=== PATIENT | female | born 1975 | race African-American/Black ===

== ENCOUNTER → 2016-10-15 | Outpatient (CLI) | payer OTHER | LOC: OD 12:15 | PROVIDERS: ATTEND Psychiatry & Neurology Psychiatry | DX: F33.0 Major depressive disorder, recurrent, mild (principal); Z53.9 Procedure and treatment not carried out, unspecified reason ==

== ENCOUNTER → 2016-10-23 | Outpatient (CLI) | payer OTHER ==
[2016-10-23 14:28] LABS: ABSOLUTE EOSINOPHILS # (AUTO) 0.1 10^3/uL (0.0-0.6); ABSOLUTE LYMPHOCYTES (AUTO) 1.4 10^3/uL (0.5-4.7); ABSOLUTE MONOCYTES (AUTO) 0.3 10^3/uL (0.1-1.4); ABSOLUTE NEUT (AUTO) 3.7 10^3/uL (1.7-8.2); BASOPHILS % (AUTO) 0.4 % (0-2); EOSINOPHILS % (AUTO) 1.9 % (0-6); HEMATOCRIT 37.1 % (36.0-47.0); HEMOGLOBIN 12.4 g/dL (12.0-15.5); HGB HCT DIFFERENCE 0.1; LYMPHOCYTES % (AUTO) 26.1 % (13-45); MEAN CORPUSCULAR HEMOGLOBIN 27.4 pg (27.0-33.4); MEAN CORPUSCULAR HGB CONC 33.6 g/dL (32.0-36.0); MEAN CORPUSCULAR VOLUME 82 fl (80-97); MONOCYTES % (AUTO) 4.9 % (3-13); RED BLOOD COUNT 4.55 10^6/uL (3.72-5.28); RED CELL DISTRIBUTION WIDTH 14.5 % (11.5-14.0); SEGMENTED NEUTROPHILS % (AUTO) 66.7 % (42-78); WHITE BLOOD COUNT 5.5 10^3/uL (4.0-10.5)
[2016-10-23 14:55] LABS: ALANINE AMINOTRANSFERASE 26 U/L (9-52); ALBUMIN 4.4 g/dL (3.5-5.0); ALKALINE PHOSPHATASE 112 U/L (38-126); ANION GAP 13 (5-19); ASPARTATE AMINO TRANSFERASE 20 U/L (14-36); BILIRUBIN,DIRECT 0.3 mg/dL (0.0-0.4); BILIRUBIN,TOTAL 0.6 mg/dL (0.2-1.3); BLOOD UREA NITROGEN 15 mg/dL (7-20); CALCIUM 9.6 mg/dL (8.4-10.2); CARBON DIOXIDE 24 mmol/L (22-30); CHLORIDE 106 mmol/L (98-107); CHOLESTEROL 228.38 mg/dL (0-200); CREATININE RESULT 0.68 mg/dL (0.52-1.25); Direct HDL 70 mg/dL (>40); GLUCOSE 81 mg/dL (75-110); POTASSIUM 4.2 mmol/L (3.6-5.0); SODIUM 142.8 mmol/L (137-145); TOTAL PROTEIN 7.8 g/dL (6.3-8.2); TRIGLYCERIDES 62 mg/dL (<150)
[2016-10-23 15:06] LABS: DIRECT LDL 106 mg/dL (<100)
== END ==
LOC: OD 13:34
PROVIDERS: ATTEND Psychiatry & Neurology Psychiatry
DX: F33.0 Major depressive disorder, recurrent, mild (principal); F41.1 Generalized anxiety disorder; F90.0 Attention-deficit hyperactivity disorder, predominantly inattentive type
CPT/HCPCS: 36415; 80053; 80061; 84443; 85025

== ENCOUNTER → 2017-03-26 | Outpatient (CLI) | payer OTHER ==
--- NOTE | 2017-03-26 12:54 | EKG REPORT ---
SEVERITY:- NORMAL ECG - SINUS RHYTHM : Confirmed by: Linden Palacios MD 26-Mar-2017 12:53:46
[2017-03-26 13:05] LABS: ABSOLUTE EOSINOPHILS # (AUTO) 0.2 10^3/uL (0.0-0.6); ABSOLUTE LYMPHOCYTES (AUTO) 1.7 10^3/uL (0.5-4.7); ABSOLUTE MONOCYTES (AUTO) 0.4 10^3/uL (0.1-1.4); BASOPHILS % (AUTO) 0.3 % (0-2); EOSINOPHILS % (AUTO) 2.3 % (0-6); HEMATOCRIT 36.2 % (36.0-47.0); HEMOGLOBIN 11.8 g/dL (12.0-15.5); HGB HCT DIFFERENCE -0.8; LYMPHOCYTES % (AUTO) 23.4 % (13-45); MEAN CORPUSCULAR HEMOGLOBIN 26.6 pg (27.0-33.4); MEAN CORPUSCULAR HGB CONC 32.7 g/dL (32.0-36.0); MEAN CORPUSCULAR VOLUME 82 fl (80-97); RED BLOOD COUNT 4.44 10^6/uL (3.72-5.28); RED CELL DISTRIBUTION WIDTH 14.6 % (11.5-14.0); WHITE BLOOD COUNT 7.4 10^3/uL (4.0-10.5)
--- NOTE | 2017-03-26 13:15 | RADIOLOGY REPORT (SQ) ---
EXAM DESCRIPTION: CHEST PA/LATERAL COMPLETED DATE/TIME: 03/26/2017 12:49 pm REASON FOR STUDY: PRE OP COMPARISON: None. EXAM PARAMETERS: NUMBER OF VIEWS: two views TECHNIQUE: Digital Frontal and Lateral radiographic views of the chest acquired. RADIATION DOSE: NA LIMITATIONS: none FINDINGS: LUNGS AND PLEURA: No opacities, masses or pneumothorax. No pleural effusion. MEDIASTINUM AND HILAR STRUCTURES: No masses or contour abnormalities. HEART AND VASCULAR STRUCTURES: Heart normal size. No evidence for failure. BONES: No acute findings. HARDWARE: None in the chest. OTHER: No other significant finding. IMPRESSION: NO SIGNIFICANT RADIOGRAPHIC FINDING IN THE CHEST. TECHNICAL DOCUMENTATION: JOB ID: [id number] [employer]- All Rights Reserved
[2017-03-26 13:31] LABS: ALANINE AMINOTRANSFERASE 23 U/L (9-52); ALBUMIN 4.3 g/dL (3.5-5.0); ALKALINE PHOSPHATASE 143 U/L (38-126); ANION GAP 12 (5-19); ASPARTATE AMINO TRANSFERASE 19 U/L (14-36); BILIRUBIN,DIRECT 0.4 mg/dL (0.0-0.4); BILIRUBIN,TOTAL 0.6 mg/dL (0.2-1.3); BLOOD UREA NITROGEN 11 mg/dL (7-20); CALCIUM 9.6 mg/dL (8.4-10.2); CARBON DIOXIDE 25 mmol/L (22-30); CHLORIDE 104 mmol/L (98-107); GLUCOSE 78 mg/dL (75-110); POTASSIUM 4.6 mmol/L (3.6-5.0); TOTAL PROTEIN 7.8 g/dL (6.3-8.2)
== END ==
LOC: OD 11:58
PROVIDERS: ATTEND Surgery
DX: Z01.810 Encounter for preprocedural cardiovascular examination (principal); Z01.811 Encounter for preprocedural respiratory examination; Z01.812 Encounter for preprocedural laboratory examination; Z01.818 Encounter for other preprocedural examination; E66.01 Morbid (severe) obesity due to excess calories; K21.9 Gastro-esophageal reflux disease without esophagitis
CPT/HCPCS: 36415; 71020; 80053; 84443; 85025; 93005; 93010

== ENCOUNTER → 2017-04-02 | Outpatient (CLI) | payer OTHER | LOC: LAB 19:54 | PROVIDERS: ATTEND Nurse Practitioner Acute Care | DX: R30.0 Dysuria (principal) | CPT/HCPCS: 87086 ==

== ENCOUNTER → 2018-07-02 | Outpatient (CLI) | payer MEDICARE, OTHER ==
--- NOTE | 2018-07-02 12:10 | RADIOLOGY REPORT (SQ) ---
EXAM DESCRIPTION: FOOT RIGHT COMPLETE COMPLETED DATE/TIME: 07/02/2018 11:55 am REASON FOR STUDY: UNSPECIFIED INJURY OF RIGHT FOOT, INITIAL ENCOUNTER S99.921A UNSPECIFIED INJURY O F RIGHT FOOT, INITIAL ENCOUNTER tripped over a suitcase, twisted foot COMPARISON: None. NUMBER OF VIEWS: Three views. TECHNIQUE: AP, lateral and oblique radiographic images acquired of the right foot. LIMITATIONS: None. FINDINGS: MINERALIZATION: Normal. BONES: No acute fracture or dislocation. No worrisome bone lesions. JOINTS: No effusions. SOFT TISSUES: Diffuse forefoot soft tissue swelling. No foreign body. OTHER: No other significant finding. IMPRESSION: Diffuse forefoot soft tissue swelling. No acute fracture. TECHNICAL DOCUMENTATION: JOB ID: [id number] [employer]- All Rights Reserved Reading location - IP/workstation name: [email or web address]
== END ==
LOC: OD 11:36
PROVIDERS: ATTEND Nurse Practitioner Acute Care
DX: S99.921A Unspecified injury of right foot, initial encounter (principal); X58.XXXA Exposure to other specified factors, initial encounter

== ENCOUNTER 2018-09-24 12:06 | Inpatient (IN) | payer OTHER, MEDICARE ==
--- NOTE | 2018-09-24 12:47 | ER Document Report ---
ED Medical Screen (RME) - General Chief Complaint: Blurred Vision Stated Complaint: BLURRED VISION Time Seen by Provider: 09/24/18 12:33 Primary Care Provider: LARRY LARSON NP [Primary Care Provider] - Follow up as needed Notes: 43-year-old female, history of polypharmacy, history of fibromyalgia and chronic pain to the emergency department for evaluation of altered mental status, blurred vision and not feeling well for the last several days. Patient states that she has a history of hypoglycemia but recently started a ketogenic diet. I have greeted and performed a rapid initial assessment of this patient. A comprehensive ED assessment and evaluation of the patient, analysis of test results and completion of the medical decision making process will be conducted by additional ED providers. TRAVEL OUTSIDE OF THE [place] IN LAST 30 DAYS: No - Related Data Allergies/Adverse Reactions: No Known Allergies Allergy (Unverified 09/24/18 12:07) Physical Exam - Vital signs Vitals: Temp Pulse Resp BP Pulse Ox 97.5 F 88 20 139/73 H 98 09/24/18 12:21 09/24/18 12:21 09/24/18 12:21 09/24/18 12:21 09/24/18 12:21 Course - Re-evaluation Re-evalutation: 09/24/18 12:49 Physical exam: Vision is quite somnolent, falling asleep during my exam, appears dry on physical exam, slightly elevated heart rate, - Vital Signs Vital signs: Temp Pulse Resp BP Pulse Ox 97.5 F 88 20 139/73 H 98 09/24/18 12:21 09/24/18 12:21 09/24/18 12:21 09/24/18 12:21 09/24/18 12:21 Doctor's Discharge - Discharge Referrals: LARRY LARSON NP [Primary Care Provider] - Follow up as needed
[2018-09-24] MEDS ORDERED: NORMAL SALINE 1000 ML 1,000 ML IV ONE (12:49)
[2018-09-24] MEDS ORDERED: MECLIZINE HCL 25 MG TABLET PO ONE (14:43)
--- NOTE | 2018-09-24 14:44 | ER Document Report ---
ED General - General Chief Complaint: Blurred Vision Stated Complaint: BLURRED VISION Time Seen by Provider: 09/24/18 12:33 Mode of Arrival: Ambulatory Information source: Patient, Relative Notes: 43-year-old female, history of polypharmacy, history of fibromyalgia and chronic pain, neuropathy presents with complaint of dizziness, blurred vision that started 3 days prior to arrival. Patient describes her dizziness as feeling lightheaded like she has to sit down. She states that it feels like the room is moving. She has had ringing in her right ear. She denies any recent illness. Patient's significant other stated that the patient has had some slurred speech, has seemed more sleepy than usual. Patient states that she has a history of hypoglycemia but recently started a ketogenic diet. TRAVEL OUTSIDE OF THE [place] IN LAST 30 DAYS: No - HPI Onset: Other Onset/Duration: Gradual, Persistent Quality of pain: Achy Severity: Mild - Patient has chronic aching pain in her neck, back, lower extremities. Associated symptoms: Body/muscle aches, Headache, Nausea. denies: Chest pain, Productive cough, Fever, Vomiting, Shortness of breath, Sweating Exacerbated by: Movement, Walking Relieved by: Sitting Similar symptoms previously: Yes Recently seen / treated by doctor: Yes - Related Data Allergies/Adverse Reactions: No Known Allergies Allergy (Unverified 09/24/18 12:07) Past Medical History - General Information source: Patient, Relative, [facility] Records - Social History Smoking Status: Never Smoker Frequency of alcohol use: None Drug Abuse: Prescription drugs Lives with: Spouse/Significant other Family History: Reviewed & Not Pertinent Patient has suicidal ideation: No Patient has homicidal ideation: No - Medical History Medical History: Other - Fibromyalgia, lupus, chronic pain Renal/ Medical History: Denies: Hx Peritoneal Dialysis Musculoskeletal Medical History: Reports Hx Arthritis Past Surgical History: Reports: Hx Orthopedic Surgery - left knee, Hx Tonsillectomy Review of Systems - Review of Systems Notes: REVIEW OF SYSTEMS: CONSTITUTIONAL : Denies fever, chills, or sweats. Denies recent illness. Denies weight loss, recent hospitalizations. EENT: Denies eye pain. Denies sore throat, oral lesions, difficulty swallowing. CARDIOVASCULAR: Denies chest pain. Denies palpitations. Denies lower extremity edema. RESPIRATORY: Denies cough. Denies shortness of breath, wheezing. GASTROINTESTINAL: Denies abdominal pain or distention. Denies nausea, vomiting, or diarrhea. Denies blood in vomitus, stools, or per rectum. Denies black, tarry stools. Denies constipation. GENITOURINARY: Denies difficulty urinating, painful urination, frequency, blood in urine, or vaginal discharge. MUSCULOSKELETAL: + Diffuse myalgia SKIN: Denies rash, lesions or sores. HEMATOLOGIC : Denies easy bruising or bleeding. LYMPHATIC: Denies swollen glands. NEUROLOGICAL: Denies altered mental status. Denies loss of consciousness. Denies weakness or paralysis. Denies problems difficulty with ambulation, slurred speech. Denies sensory loss, numbness, or tingling. Denies seizures. PSYCHIATRIC: Denies anxiety or stress. Denies depression, suicidal ideation, or homicidal ideation. Denies visual or auditory hallucinations. Physical Exam - Vital signs Vitals: Temp Pulse Resp BP Pulse Ox 97.5 F 88 20 139/73 H 98 09/24/18 12:21 09/24/18 12:21 09/24/18 12:21 09/24/18 12:21 09/24/18 12:21 - Notes Notes: PHYSICAL EXAMINATION: GENERAL: Well-appearing, well-nourished and in no acute distress. HEAD: Atraumatic, normocephalic. EYES: Pupils equal round and reactive to light, extraocular movements intact, conjunctiva are normal. ENT: Nares patent, oropharynx clear without exudates. Moist mucous membranes. NECK: Normal range of motion, supple without lymphadenopathy LUNGS: Breath sounds clear to auscultation bilaterally and equal. No wheezes rales or rhonchi. HEART: Regular rate and rhythm without murmurs ABDOMEN: Soft, nontender, nondistended abdomen. No guarding, no rebound. No masses appreciated. Female : deferred Musculoskeletal: Normal range of motion, no pitting or edema. No cyanosis. NEUROLOGICAL: Mental status; alert and oriented x3. Cranial nerves II through XII intact. Sensation intact to sharp/dull differentiation in all extremities. Motor; normal tone. No abnormal movements appreciated. No pronator drift. Strength tested and 5/5 in bilateral wrist flexion/extension, elbow flexion/extension, shoulder abduction, straight leg raise, knee flexion/extension, ankle dorsiflexion/plantar flexion. Coordination; no ataxia. Finger to nose and heel to zambrano testing intact bilaterally. Bilateral lower extremity drift. NIH-3 Reflexes; brachial radialis, biceps, and patellar reflexes within normal limits and symmetric bilaterally. Babinski with downgoing toes bilaterally. PSYCH: Normal mood, normal affect. SKIN: Warm, Dry, normal turgor, no rashes or lesions noted. Course - Re-evaluation Re-evalutation: Laboratory 09/24/18 09/24/18 09/24/18 12:50 13:26 13:47 WBC RBC Hgb Hct MCV MCH MCHC RDW Plt Count Seg Neutrophils % Lymphocytes % Monocytes % Eosinophils % Basophils % Absolute Neutrophils Absolute Lymphocytes Absolute Monocytes Absolute Eosinophils Absolute Basophils PT INR APTT Sodium Potassium Chloride Carbon Dioxide Anion Gap BUN Creatinine Est GFR ( Amer) Est GFR (Non-Af Amer) Glucose POC Glucose 80 77 Calcium Magnesium Total Bilirubin Direct Bilirubin Neonat Total Bilirubin Neonat Direct Bilirubin Neonat Indirect Bili AST ALT Alkaline Phosphatase Troponin I Total Protein Albumin TSH Free T4 Free T3 pg/mL Urine Color YELLOW Urine Appearance SLIGHTLY-CLOUDY Urine pH 5.0 Ur Specific [place] 1.013 Urine Protein NEGATIVE Urine Glucose (UA) NEGATIVE Urine Ketones NEGATIVE Urine Blood NEGATIVE Urine Nitrite NEGATIVE Urine Bilirubin NEGATIVE Urine Urobilinogen NEGATIVE Ur Leukocyte Esterase SMALL H Urine WBC (Auto) 21 Urine RBC (Auto) 5 Urine Bacteria (Auto) TRACE Urine Mucus (Auto) RARE Urine Ascorbic Acid 20 H Urine Opiates Screen Urine Methadone Screen Ur Barbiturates Screen Ur Phencyclidine Scrn Ur Amphetamines Screen U Benzodiazepines Scrn Urine Cocaine Screen U Marijuana (THC) Screen Serum Alcohol 09/24/18 09/24/18 09/24/18 13:47 14:46 14:46 WBC 6.5 RBC 4.34 Hgb 11.6 L Hct 35.2 L MCV 81 MCH 26.8 L MCHC 33.1 RDW 14.5 H Plt Count 303 Seg Neutrophils % 67.0 Lymphocytes % 23.8 Monocytes % 6.0 Eosinophils % 2.8 Basophils % 0.4 Absolute Neutrophils 4.3 Absolute Lymphocytes 1.5 Absolute Monocytes 0.4 Absolute Eosinophils 0.2 Absolute Basophils 0.0 PT INR APTT Sodium 139.9 Potassium 5.1 H Chloride 111 H Carbon Dioxide 14 L Anion Gap 15 BUN 69 H Creatinine 4.33 H Est GFR ( Amer) 14 L Est GFR (Non-Af Amer) 11 L Glucose 89 POC Glucose Calcium 9.1 Magnesium 2.3 Total Bilirubin 0.3 Direct Bilirubin 0.2 Neonat Total Bilirubin Not Reportable Neonat Direct Bilirubin Not Reportable Neonat Indirect Bili Not Reportable AST 21 ALT 29 Alkaline Phosphatase 132 H Troponin I Total Protein 8.1 Albumin 4.4 TSH Free T4 Free T3 pg/mL Urine Color Urine Appearance Urine pH Ur Specific [place] Urine Protein Urine Glucose (UA) Urine Ketones Urine Blood Urine Nitrite Urine Bilirubin Urine Urobilinogen Ur Leukocyte Esterase Urine WBC (Auto) Urine RBC (Auto) Urine Bacteria (Auto) Urine Mucus (Auto) Urine Ascorbic Acid Urine Opiates Screen NEGATIVE Urine Methadone Screen NEGATIVE Ur Barbiturates Screen NEGATIVE Ur Phencyclidine Scrn NEGATIVE Ur Amphetamines Screen NEGATIVE U Benzodiazepines Scrn NEGATIVE Urine Cocaine Screen NEGATIVE U Marijuana (THC) Screen NEGATIVE Serum Alcohol < 10 09/24/18 09/24/18 09/24/18 14:46 14:46 14:46 WBC RBC Hgb Hct MCV MCH MCHC RDW Plt Count Seg Neutrophils % Lymphocytes % Monocytes % Eosinophils % Basophils % Absolute Neutrophils Absolute Lymphocytes Absolute Monocytes Absolute Eosinophils Absolute Basophils PT 13.8 INR 1.01 APTT 33.4 Sodium Potassium Chloride Carbon Dioxide Anion Gap BUN Creatinine Est GFR ( Amer) Est GFR (Non-Af Amer) Glucose POC Glucose Calcium Magnesium Total Bilirubin Direct Bilirubin Neonat Total Bilirubin Neonat Direct Bilirubin Neonat Indirect Bili AST ALT Alkaline Phosphatase Troponin I < 0.012 Total Protein Albumin TSH 4.48 Free T4 0.72 L Free T3 pg/mL 3.52 Urine Color Urine Appearance Urine pH Ur Specific [place] Urine Protein Urine Glucose (UA) Urine Ketones Urine Blood Urine Nitrite Urine Bilirubin Urine Urobilinogen Ur Leukocyte Esterase Urine WBC (Auto) Urine RBC (Auto) Urine Bacteria (Auto) Urine Mucus (Auto) Urine Ascorbic Acid Urine Opiates Screen Urine Methadone Screen Ur Barbiturates Screen Ur Phencyclidine Scrn Ur Amphetamines Screen U Benzodiazepines Scrn Urine Cocaine Screen U Marijuana (THC) Screen Serum Alcohol 09/24/18 14:46 WBC RBC Hgb Hct MCV MCH MCHC RDW Plt Count Seg Neutrophils % Lymphocytes % Monocytes % Eosinophils % Basophils % Absolute Neutrophils Absolute Lymphocytes Absolute Monocytes Absolute Eosinophils Absolute Basophils PT INR APTT Sodium Potassium Chloride Carbon Dioxide Anion Gap BUN Creatinine Est GFR ( Amer) Est GFR (Non-Af Amer) Glucose POC Glucose Calcium Magnesium Total Bilirubin Direct Bilirubin Neonat Total Bilirubin Neonat Direct Bilirubin Neonat Indirect Bili AST ALT Alkaline Phosphatase Troponin I Total Protein Albumin TSH Cancelled Free T4 Free T3 pg/mL Urine Color Urine Appearance Urine pH Ur Specific [place] Urine Protein Urine Glucose (UA) Urine Ketones Urine Blood Urine Nitrite Urine Bilirubin Urine Urobilinogen Ur Leukocyte Esterase Urine WBC (Auto) Urine RBC (Auto) Urine Bacteria (Auto) Urine Mucus (Auto) Urine Ascorbic Acid Urine Opiates Screen Urine Methadone Screen Ur Barbiturates Screen Ur Phencyclidine Scrn Ur Amphetamines Screen U Benzodiazepines Scrn Urine Cocaine Screen U Marijuana (THC) Screen Serum Alcohol Head CT 09/24/18 14:43 IMPRESSION: NORMAL BRAIN CT WITHOUT CONTRAST. EVIDENCE OF ACUTE STROKE: NO. Temp Pulse Resp BP Pulse Ox 97.5 F 80 18 130/79 H 100 09/24/18 12:21 09/24/18 15:39 09/24/18 20:00 09/24/18 20:00 09/24/18 20:00 09/24/18 15:24 43-year-old female presents with complaints of lightheadedness, dizziness, blurred vision, nausea that has been ongoing for 2-3 days. Patient states she wears glasses but does not have been present with her today. She denies any recent illness. NIH was performed and 3 for bilateral lower extremity drift likely secondary to chronic back pain and slowed speech. Patient does currently take Nucynta, oxycodone, Flexeril and Lyrica. 09/24/18 16:50 Spoke with the hospitalist regarding the patient's creatinine of 4.33. States that he is concerned for lupus nephritis. 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 Shi who is associated with [facility] per the patient. 09/24/18 16:56 Dr. Shi office contacted awaiting callback. Patient has been placed on [facility] transfer list. Dr. Shi states that the patient is not currently being treated for active lupus. He does report normal kidney function in July 2018 but does not believe that the patient's acute renal failure is due to lupus. Spoke to the hospitalist who has agreed to admit the patient with a nephrology consult to Dr. Kline. 09/24/18 21:47 - Vital Signs Vital signs: Temp Pulse Resp BP Pulse Ox 97.5 F 80 18 130/79 H 100 09/24/18 12:21 09/24/18 15:39 09/24/18 20:00 09/24/18 20:00 09/24/18 20:00 - Laboratory Result Diagrams: 09/24/18 14:46 09/24/18 14:46 Laboratory results interpreted by me: 09/24/18 09/24/18 09/24/18 13:47 14:46 14:46 Hgb 11.6 L Hct 35.2 L MCH 26.8 L RDW 14.5 H Potassium 5.1 H Chloride 111 H Carbon Dioxide 14 L BUN 69 H Creatinine 4.33 H Est GFR ( Amer) 14 L Est GFR (Non-Af Amer) 11 L Alkaline Phosphatase 132 H Free T4 Ur Leukocyte Esterase SMALL H Urine Ascorbic Acid 20 H 09/24/18 14:46 Hgb Hct MCH RDW Potassium Chloride Carbon Dioxide BUN Creatinine Est GFR ( Amer) Est GFR (Non-Af Amer) Alkaline Phosphatase Free T4 0.72 L Ur Leukocyte Esterase Urine Ascorbic Acid - Diagnostic Test Radiology reviewed: Image reviewed, Reports reviewed - EKG Interpretation by Me EKG shows normal: Sinus rhythm Rate: Normal Rhythm: NSR When compared to previous EKG there are: No significant change Discharge - Discharge Clinical Impression: Dizziness, History of fibromyalgia, Fibromyalgia Acute renal failure Qualifiers: Acute renal failure type: unspecified Qualified Code(s): N17.9 - Acute kidney failure, unspecified Hypothyroidism Qualifiers: Hypothyroidism type: unspecified Qualified Code(s): E03.9 - Hypothyroidism, unspecified Condition: Good Disposition: ADMITTED INPATIENT Admitting Provider: Hospitalist Unit Admitted: Medical Floor ED NIH Stroke Scale - NIH Stroke Scale *: 1. NIH scale should be completed with appropriate accompanying assessment tools. *: 2. The NIH should reflect what the patient is capable of doing and should not be coached by the clinician. 1a. Level of Consciousness: 0=Alert;keenly responsive -: 1=Drowsy -: 2=Obtunded -: 3=Coma/unresponsive or reflex to noxious stimuli. 1a. Responses: 0 1b. Orientation Questions: a. What month is it? -: b. How old are you? -: 0=Answers both questions correctly. -: 1=Answers one question correctly or patient is intubated or has orotracheal trauma. -: 2=Answers neither question correctly. 1b. Responses: 0 1c. Response to commands: a. Open and close eyes? -: b. Transcribing Operators Supervisor and release hand? -: Credit is given despite weakness. Demonstration of task is permitted. Substitute command if hands cannot be used. -: 0=Performs both tasks correctly -: 1=Performs one task correctly -: 2=Performs neither task correctly 1c. Responses: 0 2. Gaze: Establish eye contact and instruct patient to "Follow my finger" -: 0=Normal -: 1=Partial gaze palsy. Gaze is abnormal in one or both eyes, but where forced deviation or total gaze paresis is not present. -: 2=Forced deviation or total gaze paresis. 2. Responses: 0 3. Visual Leal: Sees fingers in all four quadrants. -: 0=No visual loss. -: 1=Partial hemianopsia. -: 2=Complete hemianopsia. -: 3=Bilateral hemianopsia (including Cortical blindness) 3. Responses: 0 4. Facial Movement: Instruct patient to: -: a. Show me your teeth -: b. Raise your eyebrows -: c. Close your eyes -: d. Smile -: 0=Normal symmetrical movement -: 1=Minor paralysis (flattened nasolabial fold, asymmetry on smiling). -: 2=Partial paralysis (total or near total paralysis of lower face). -: 3=Complete paralysis of upper and lower face 4. Responses: 0 5. Motor functions (left arm): Alternate sides and extend each arm with palms down (90 degrees if sitting or 45 degrees for supine). -: 0=No drift;limb holds for full 10 seconds. -: 1=Drift; limb holds but drifts down before full 10 seconds, but does not hit bed. -: 2=Some effort against gravity; limb cannot get to or maintain position. -: 3=No effort against gravity; limb falls. -: 4=No movement. -: UN=Amputation, joint fusion, explain in comments. 5. Responses (left arm): 0 5. Motor Functions (right arm): Alternate sides and extend each arm with palms down (90 degrees if sitting or 45 degrees for supine). -: 0=No drift;limb holds for full 10 seconds. -: 1=Drift; limb holds but drifts down before full 10 seconds, but does not hit bed. -: 2=Some effort against gravity; limb cannot get to or maintain position. -: 3=No effort against gravity; limb falls. -: 4=No movement. -: UN=Amputation, joint fusion, explain in comments. 5. Responses (right arm): 0 6. Motor Functions (left leg): With patient lying supine, alternate sides and extend each leg (30 degrees always while supine). -: 0=No drift, leg holds position for full 5 seconds -: 1=Drift; leg falls before full 5 seconds but does not hit bed. -: 2=Some effort against gravity, leg falls to bed but some effort against gravity. -: 3=No effort against gravity, leg falls to bed immediately. -: 4=No movement. -: UN=Amputation, joint fusion; explain in comments. 6. Responses (left leg): 1 6. Motor Functions (right leg): With patient lying supine, alternate sides and extend each leg (30 degrees always while supine). -: 0=No drift, leg holds position for full 5 seconds -: 1=Drift; leg falls before full 5 seconds but does not hit bed. -: 2=Some effort against gravity, leg falls to bed but some effort against gravity. -: 3=No effort against gravity, leg falls to bed immediately. -: 4=No movement. -: UN=Amputation, joint fusion; explain in comments. 6. Responses (right leg): 1 7. Limb Ataxia: With eyes open instruct patient to: -: a. "Touch your finger to your nose". -: b. "Touch your heel to your zambrano" -: 0=Absent -: 1=Present in one limb. -: 2=Present in two limbs. -: UN=Amputation or joint fusion; explain in comments. 7. Responses: 0 8. Sensory: Test sensation using pinprick or noxious stimuli. Test as many body parts as possible. -: 0=Normal;no sensory loss -: 1=Mile to moderate sensory loss (patient feels pin prick but is less sharp on affected side). -: 2=Severe or total sensory loss. 8. Responses: 0 9. Best Language: Instruct patient to: -: a. "Describe what you see in this picture." -: b. "Name the items in this picture." -: c. "Read these sentences." -: 0=No aphasia, normal -: 1=Mild to moderate aphasia. -: 2=Severe aphasia -: 3=Mute, global aphasia, no usable speech or auditory comprehension. 9. Responses: 0 10. Articulation, Dysarthia: Instruct patient to: -: "Read these words" or "Repeat these words" -: 0=Normal -: 1=Mild to moderate; patient may slur some words but can be understood without difficulty. -: 2=Severe; patients speech so slurred as to be unintelligible in the absence of dysphasia. -: UN=Intubated or other physical barrier, explain in comments. 10. Responses: 1 11. Extinction or inattention: 0=No abnormality -: 1= Visual, tactile, auditory, spatial, or personal inattention or extinction to bilateral simulation in one or the sensory modalities. -: 2=Profound corbin-inattention or corbin-inattention to more than one modality; does not recognize own hand. Total Score: 3
[2018-09-24 14:59] LABS: ABSOLUTE EOSINOPHILS # (AUTO) 0.2 10^3/uL (0.0-0.6); ABSOLUTE LYMPHOCYTES (AUTO) 1.5 10^3/uL (0.5-4.7); ABSOLUTE MONOCYTES (AUTO) 0.4 10^3/uL (0.1-1.4); ABSOLUTE NEUT (AUTO) 4.3 10^3/uL (1.7-8.2); BASOPHILS % (AUTO) 0.4 % (0-2); EOSINOPHILS % (AUTO) 2.8 % (0-6); HEMATOCRIT 35.2 % (36.0-47.0); HEMOGLOBIN 11.6 g/dL (12.0-15.5); LYMPHOCYTES % (AUTO) 23.8 % (13-45); MEAN CORPUSCULAR HEMOGLOBIN 26.8 pg (27.0-33.4); MEAN CORPUSCULAR HGB CONC 33.1 g/dL (32.0-36.0); MEAN CORPUSCULAR VOLUME 81 fl (80-97); PLATELET COUNT 303 10^3/uL (150-450); RED BLOOD COUNT 4.34 10^6/uL (3.72-5.28); RED CELL DISTRIBUTION WIDTH 14.5 % (11.5-14.0); TOTAL CELLS COUNTED % (AUTO) 100 %; WHITE BLOOD COUNT 6.5 10^3/uL (4.0-10.5)
[2018-09-24 15:18] LABS: ALANINE AMINOTRANSFERASE 29 U/L (9-52); ALBUMIN 4.4 g/dL (3.5-5.0); ALKALINE PHOSPHATASE 132 U/L (38-126); ANION GAP 15 (5-19); ASPARTATE AMINO TRANSFERASE 21 U/L (14-36); BILIRUBIN,DIRECT 0.2 mg/dL (0.0-0.4); BILIRUBIN,TOTAL 0.3 mg/dL (0.2-1.3); BLOOD UREA NITROGEN 69 mg/dL (7-20); CALCIUM 9.1 mg/dL (8.4-10.2); CARBON DIOXIDE 14 mmol/L (22-30); CHLORIDE 111 mmol/L (98-107); GLUCOSE 89 mg/dL (75-110); POTASSIUM 5.1 mmol/L (3.6-5.0); SODIUM 139.9 mmol/L (137-145); TOTAL PROTEIN 8.1 g/dL (6.3-8.2)
[2018-09-24 15:19] LABS: ALCOHOL < 10 mg/dL (NONE DETECTED)
--- NOTE | 2018-09-24 15:27 | RADIOLOGY REPORT (SQ) ---
EXAM DESCRIPTION: CT HEAD WITHOUT COMPLETED DATE/TIME: 09/24/2018 3:17 pm REASON FOR STUDY: dizzy COMPARISON: None. TECHNIQUE: Axial images acquired through the brain without intravenous contrast. Images reviewed wi th bone, brain and subdural windows. Additional sagittal and coronal reconstructions were generated. Images stored on PACS. All CT scanners at this facility use dose modulation, iterative reconstruction, and/or weight based d osing when appropriate to reduce radiation dose to as low as reasonably achievable (ALARA). [facility]: Dose Right [facility]: CareDose [facility]: Dose Right [facility]: Teradose 4D [facility]: GoGoPin RADIATION DOSE: CT Rad equipment meets quality standard of care and radiation dose reduction techniq ues were employed. CTDIvol: 53.2 mGy. DLP: 1150 mGy-cm. mGy. LIMITATIONS: None. FINDINGS: VENTRICLES: Normal size and contour. CEREBRUM: No masses. No hemorrhage. No midline shift. No evidence for acute infarction. Normal gra y/white matter differentiation. No areas of low density in the white matter. CEREBELLUM: No masses. No hemorrhage. No alteration of density. No evidence for acute infarction. EXTRAAXIAL SPACES: No fluid collections. No masses. ORBITS AND GLOBE: No intra- or extraconal masses. Normal contour of globe without masses. CALVARIUM: No fracture. PARANASAL SINUSES: No fluid or mucosal thickening. SOFT TISSUES: No mass or hematoma. OTHER: No other significant finding. IMPRESSION: NORMAL BRAIN CT WITHOUT CONTRAST. EVIDENCE OF ACUTE STROKE: NO. COMMENT: Quality ID # [id number]: Final reports with documentation of one or more dose reduction techniques (e.g., Automated exposure control, adjustment of the mA and/or kV according to patient size, use of iterative reconstruction technique) TECHNICAL DOCUMENTATION: JOB ID: [id number] [employer]- All Rights Reserved Reading location - IP/workstation name: [email or web address]
[2018-09-24 15:33] LABS: FREE T3 3.52 pg/mL (2.77-5.27); FREE T4 (FREE THYROXINE) 0.72 ng/dL (0.78-2.19)
[2018-09-24 15:46] LABS: THYROID STIMULATING HORMONE 4.48 uIU/mL (0.47-4.68)
[2018-09-24 15:56] LABS: APPEARANCE,URINE SLIGHTLY-CLOUDY; BILIRUBIN,URINE NEGATIVE (NEGATIVE); COLOR,URINE YELLOW; GLUCOSE, URINE NEGATIVE (NEGATIVE); KETONES,URINE NEGATIVE (NEGATIVE); LEUKOCYTE ESTERASE,URINE SMALL (NEGATIVE); NITRITE,URINE NEGATIVE (NEGATIVE); PROTEIN,URINE NEGATIVE (NEGATIVE); URINE SPECIFIC GRAVITY 1.013; UROBILINOGEN,URINE NEGATIVE mg/dL (<2.0)
[2018-09-24 16:06] LABS: URINE AMPHETAMINES SCREEN NEGATIVE; URINE BARBITURATES SCREEN NEGATIVE; URINE BENZODIAZEPINES SCREEN NEGATIVE; URINE COCAINE SCREEN NEGATIVE; URINE MARIJUANA (THC) SCREEN NEGATIVE; URINE METHADONE SCREEN NEGATIVE; URINE PHENCYCLIDINE SCREEN NEGATIVE
[2018-09-24] MEDS ORDERED: NORMAL SALINE 1000 ML 1,000 ML IV PRN (18:23)
[2018-09-24] MEDS ORDERED: ACETAMINOPHEN 325 MG TABLET PO PRN (18:23)
--- NOTE | 2018-09-24 18:42 | PDOC H&P ---
History of Present Illness Admission Date/PCP: RYAN JOHNSON MD Patient complains of: weakness and dizziness for the past few days History of Present Illness: RENETTA ARITA is a 43 year old female presents to the ER with a complaint of weakness and fatigue. States this is been going on for the past few days. States for the past few days she has been eating and drinking a little less than usual but not significantly. She denies any recent nausea vomiting constipation or diarrhea. She denies any fevers or chills. No one else in the house has been sick recently. She does have a history of lupus. She follows with a digital analyst. She was last seen in July. Per the digital analyst at that time she had a normal renal function. 43-year-old female, history of polypharmacy, history of fibromyalgia and chronic pain, neuropathy presents with complaint of dizziness, blurred vision that started 3 days prior to arrival. Patient describes her dizziness as feeling lightheaded like she has to sit down. She states that it feels like the room is moving. She has had ringing in her right ear. She denies any recent illness. Patient's significant other stated that the patient has had some slurred speech, has seemed more sleepy than usual. Patient states that she has a history of hypoglycemia but recently started a ketogenic diet. Past Medical History Cardiac Medical History: Denies: Atrial Fibrillation, Congestive Heart Failure, Hypertension Pulmonary Medical History: Denies: Asthma, Sleep Apnea Neurological Medical History: Denies: Seizures Endocrine Medical History: Reports: Hypothyroidism Denies: Diabetes Mellitus Type 1 Renal/ Medical History: Denies: Chronic Kidney Disease, End Stage Renal Disease GI Medical History: Denies: Cirrhosis, Gastroesophageal Reflux Disease, Hepatitis Musculoskeltal Medical History: Reports: Arthritis Psychiatric Medical History: Denies: Alcohol Dependency, Depression, Tobacco Dependency Hematology: Reports: Anemia Infectious Medical History: Denies: Hepatitis C, HIV Past Surgical History Past Surgical History: Reports: Orthopedic Surgery - left knee, Tonsillectomy Social History Lives with: Spouse/Significant other Smoking Status: Never Smoker Family History Family History: Hypertension. denies: DM Parental Family History Reviewed: Yes Children Family History Reviewed: Yes Sibling(s) Family History Reviewed.: Yes Medication/Allergy Home Medications: Bupropion HCl [Bupropion Xl] 150 mg PO DAILY 09/24/18 Celecoxib [Celebrex 200 mg Capsule] 200 mg PO Q12 09/24/18 Ferrous Gluconate 324 mg PO DAILY 09/24/18 Furosemide [Lasix 20 mg Tablet] 20 mg PO DAILY 09/24/18 Levothyroxine Sodium [Synthroid 0.025 mg Tablet] 25 mcg PO DAILY 09/24/18 Nortriptyline HCl [Pamelor] 75 mg PO DAILY 09/24/18 Oxycodone HCl/Acetaminophen [Endocet 5-325 Tablet] 1 each PO QID 09/24/18 Pregabalin [Lyrica] 150 mg PO TID 09/24/18 Sertraline HCl [Zoloft] 100 mg PO DAILY 09/24/18 Sumatriptan Succinate [Imitrex 100 Mg Tablet] 100 mg PO BID 09/24/18 Topiramate 50 mg PO BID 09/24/18 Allergies/Adverse Reactions: No Known Allergies Allergy (Unverified 09/24/18 12:07) Review of Systems Constitutional: PRESENT: fatigue, weakness. ABSENT: chills, fever(s), headache(s) Cardiovascular: ABSENT: dyspnea on exertion, orthropnea Respiratory: ABSENT: cough, dyspnea Gastrointestinal: ABSENT: abdominal pain, diarrhea, heartburn, nausea, vomiting Genitourinary: ABSENT: difficulty urinating Neurological: ABSENT: abnormal gait, confusion, lack of coordination, numbness, paresthesias Endocrine: PRESENT: polyuria. ABSENT: polydipsia Hematologic/Lymphatic: ABSENT: lymphadenopathy Physical Exam Vital Signs: Temp Pulse Resp BP Pulse Ox 97.5 F 80 16 144/89 H 100 09/24/18 12:21 09/24/18 15:39 09/24/18 16:01 09/24/18 16:01 09/24/18 16:01 Intake & Output 09/23/18 09/24/18 09/25/18 06:59 06:59 06:59 Weight 132.5 kg General appearance: PRESENT: no acute distress, cooperative, well-developed Eye exam: PRESENT: EOMI, PERRLA. ABSENT: scleral icterus Mouth exam: PRESENT: dry mucosa, neck supple Neck exam: PRESENT: full ROM, JVD. ABSENT: lymphadenopathy, tenderness, thyromegaly, tracheal deviation Respiratory exam: PRESENT: clear to auscultation silvina, unlabored. ABSENT: accessory muscle use Cardiovascular exam: PRESENT: RRR. ABSENT: gallop, rubs GI/Abdominal exam: PRESENT: normal bowel sounds, soft. ABSENT: ascites Extremities exam: ABSENT: pedal edema Musculoskeletal exam: PRESENT: full ROM. ABSENT: tenderness Neurological exam: PRESENT: alert, oriented to person, oriented to place, oriented to time, oriented to situation Psychiatric exam: ABSENT: anxious Skin exam: PRESENT: normal color, warm. ABSENT: rash Results Laboratory Results: 09/24/18 14:46 09/24/18 14:46 09/24/18 09/24/18 09/24/18 13:47 14:46 14:46 WBC 6.5 RBC 4.34 Hgb 11.6 L Hct 35.2 L MCV 81 MCH 26.8 L MCHC 33.1 RDW 14.5 H Plt Count 303 Seg Neutrophils % 67.0 Lymphocytes % 23.8 Monocytes % 6.0 Eosinophils % 2.8 Basophils % 0.4 Absolute Neutrophils 4.3 Absolute Lymphocytes 1.5 Absolute Monocytes 0.4 Absolute Eosinophils 0.2 Absolute Basophils 0.0 Sodium 139.9 Potassium 5.1 H Chloride 111 H Carbon Dioxide 14 L Anion Gap 15 BUN 69 H Creatinine 4.33 H Est GFR ( Amer) 14 L Est GFR (Non-Af Amer) 11 L Glucose 89 Calcium 9.1 Magnesium 2.3 Total Bilirubin 0.3 AST 21 ALT 29 Alkaline Phosphatase 132 H Total Protein 8.1 Albumin 4.4 TSH Free T4 Free T3 pg/mL Urine Color YELLOW Urine Appearance SLIGHTLY-CLOUDY Urine pH 5.0 Ur Specific [place] 1.013 Urine Protein NEGATIVE Urine Glucose (UA) NEGATIVE Urine Ketones NEGATIVE Urine Blood NEGATIVE Urine Nitrite NEGATIVE Ur Leukocyte Esterase SMALL H Urine WBC (Auto) 21 Urine RBC (Auto) 5 09/24/18 14:46 WBC RBC Hgb Hct MCV MCH MCHC RDW Plt Count Seg Neutrophils % Lymphocytes % Monocytes % Eosinophils % Basophils % Absolute Neutrophils Absolute Lymphocytes Absolute Monocytes Absolute Eosinophils Absolute Basophils Sodium Potassium Chloride Carbon Dioxide Anion Gap BUN Creatinine Est GFR ( Amer) Est GFR (Non-Af Amer) Glucose Calcium Magnesium Total Bilirubin AST ALT Alkaline Phosphatase Total Protein Albumin TSH 4.48 Free T4 0.72 L Free T3 pg/mL 3.52 Urine Color Urine Appearance Urine pH Ur Specific [place] Urine Protein Urine Glucose (UA) Urine Ketones Urine Blood Urine Nitrite Ur Leukocyte Esterase Urine WBC (Auto) Urine RBC (Auto) 09/24/18 14:46 Troponin I < 0.012 Impressions: Head CT 09/24/18 14:43 IMPRESSION: NORMAL BRAIN CT WITHOUT CONTRAST. EVIDENCE OF ACUTE STROKE: NO. Assessment & Plan - Diagnosis (1) Acute renal failure Is this a current diagnosis for this admission?: Yes Plan: This may be secondary to NSAID use with Celebrex. Patient denies any nausea vomiting constipation diarrhea or other acute causes. She has recently started on a keto diet. This case was discussed with Dr. Kline from nephrology. There is a concern for lupus nephritis given her history of lupus and acute onset of the renal failure. Will order several labs to include Anka sed rate hepatitis panel coag studies and lupus profile. We will get patient set up for renal biopsy. In the meantime continue IV hydration. Will monitor closely. (2) Hyperkalemia Plan: This is secondary to acute renal failure. Should correct with hydration. Potassium is only slightly elevated at 5.1. Repeat CMP in the morning. (3) Lupus Is this a current diagnosis for this admission?: Yes Plan: The ER discussed this with her digital analyst. He stated that she does have lupus but she does not have active lupus. She was last seen in July of this year. At that point her labs look normal. (4) Fibromyalgia Is this a current diagnosis for this admission?: Yes Plan: Holding some of her home medications due to renal function. We will continue to monitor. Added Tylenol for any acute pain. (5) Hypothyroidism Is this a current diagnosis for this admission?: Yes Plan: We will repeat TSH in the morning. We will continue home replacement for now. - Time Time Spent: 50 to 70 Minutes Medications reviewed and adjusted accordingly: Yes Anticipated discharge: Home
--- NOTE | 2018-09-24 19:19 | EKG REPORT ---
SEVERITY:- NORMAL ECG - SINUS RHYTHM : Confirmed by: Linnette Nevarez MD 24-Sep-2018 19:18:34
[2018-09-24 19:27] LABS: INTERNATIONAL RATION (INR) 1.01; PROTHROMBIN TIME 13.8 SEC (11.4-15.4)
[2018-09-24 19:28] LABS: PARTIAL THROMBOPLASTIN TIME 33.4 SEC (23.5-35.8)
[2018-09-24] MEDS: OXYCODONE-ACETAMINOPHEN 5-325 MG TABLET PO PRN (20:19)
[2018-09-24] MEDS ORDERED: OXYCODONE-ACETAMINOPHEN 5-325 MG TABLET PO SCH (22:00)
[2018-09-24] MEDS: HEPARIN SOD (PORCINE) 5,000 UNIT/ML 1 ML SYRINGE SUBCUT SCH (23:50)
[2018-09-24] MEDS: BUPROPION HCL 75 MG TABLET PO SCH (23:52)
[2018-09-25] MEDS: HEPARIN SOD (PORCINE) 5,000 UNIT/ML 1 ML SYRINGE SUBCUT SCH ×3 (06:29→22:37)
--- NOTE | 2018-09-25 06:49 | RADIOLOGY REPORT (SQ) ---
CLINICAL DATA: Acute renal failure, hyperkalemia. TECHNICAL DATA: Grayscale and Doppler ultrasound imaging of the abdomen was performed including imaging of the kidneys, bladder, aorta and inferior vena cava. Comparison: None. FINDINGS: The right kidney measures 10.5 x 5.2 x 5.4 cm. The renal cortex is echogenic. There is no evidence of renal mass, calculi or perinephric fluid collection. There is no aurelia hydronephrosis. There are prominent, echogenic renal pyramids. The left kidney measures 11.7 x 6.4 x 7.2 cm. The renal cortex is echogenic. There is no evidence of renal mass, calculi or perinephric fluid collection. There is no aurelia hydronephrosis. There are prominent, echogenic renal pyramids. There is no free fluid in the abdomen. The abdominal aorta is normal in caliber. The bladder is well distended and grossly unremarkable in appearance. The left ureteral jet is visualized. The inferior vena cava is normal. IMPRESSION: 1. Prominent echogenic renal pyramids bilaterally. 2. Increased renal cortical echogenicity. 3. Otherwise, unremarkable retroperitoneal ultrasound.
[2018-09-25 07:11] LABS: ALANINE AMINOTRANSFERASE 35 U/L (9-52); ALBUMIN 4.9 g/dL (3.5-5.0); ALKALINE PHOSPHATASE 146 U/L (38-126); ANION GAP 12 (5-19); ASPARTATE AMINO TRANSFERASE 53 U/L (14-36); BILIRUBIN,DIRECT 0.4 mg/dL (0.0-0.4); BILIRUBIN,TOTAL 0.5 mg/dL (0.2-1.3); BLOOD UREA NITROGEN 67 mg/dL (7-20); CALCIUM 9.7 mg/dL (8.4-10.2); CARBON DIOXIDE 18 mmol/L (22-30); CHLORIDE 115 mmol/L (98-107); GLUCOSE 70 mg/dL (75-110); PHOSPHORUS 6.1 mg/dL (2.5-4.5); TOTAL PROTEIN 9.1 g/dL (6.3-8.2)
[2018-09-25 07:26] LABS: POTASSIUM 6.4 mmol/L (3.6-5.0)
[2018-09-25 07:31] LABS: ABSOLUTE EOSINOPHILS # (AUTO) 0.3 10^3/uL (0.0-0.6); ABSOLUTE LYMPHOCYTES (AUTO) 1.8 10^3/uL (0.5-4.7); ABSOLUTE MONOCYTES (AUTO) 0.5 10^3/uL (0.1-1.4); BASOPHILS % (AUTO) 0.4 % (0-2); EOSINOPHILS % (AUTO) 3.1 % (0-6); HEMATOCRIT 38.8 % (36.0-47.0); HEMOGLOBIN 12.6 g/dL (12.0-15.5); LYMPHOCYTES % (AUTO) 21.1 % (13-45); MEAN CORPUSCULAR HEMOGLOBIN 26.5 pg (27.0-33.4); MEAN CORPUSCULAR HGB CONC 32.5 g/dL (32.0-36.0); MEAN CORPUSCULAR VOLUME 82 fl (80-97); MONOCYTES % (AUTO) 5.4 % (3-13); RED BLOOD COUNT 4.76 10^6/uL (3.72-5.28); RED CELL DISTRIBUTION WIDTH 14.4 % (11.5-14.0); TOTAL CELLS COUNTED % (AUTO) 100 %; WHITE BLOOD COUNT 8.6 10^3/uL (4.0-10.5)
[2018-09-25] MEDS: LEVOTHYROXINE SODIUM 0.025 MG TABLET PO SCH (07:49)
[2018-09-25] MEDS: OXYCODONE-ACETAMINOPHEN 5-325 MG TABLET PO PRN ×3 (07:52→23:18)
[2018-09-25 08:05] LABS: PLATELET COUNT 285 10^3/uL (150-450)
[2018-09-25] MEDS ORDERED: ONDANSETRON HCL INJ/PF 4 MG/2 ML SDV ONE (08:33)
[2018-09-25] MEDS ORDERED: NORMAL SALINE 1000 ML 1,000 ML IV PRN (08:50)
[2018-09-25] MEDS ORDERED: SODIUM POLYSTYRENE SULFONATE 15 GM/60 ML PO ONE ×2 (10:00→11:30)
[2018-09-25] MEDS ORDERED: (PENDING PHARMACY ID) (Bupropion Hcl [Bupropion Xl] 150 MG) PO SCH (10:00)
[2018-09-25] MEDS ORDERED: CALCIUM GLUCONATE 1000 MG/10 ML INJ IV ONE (10:30)
[2018-09-25] MEDS: BUPROPION HCL 75 MG TABLET PO SCH ×2 (10:49→22:41)
[2018-09-25] MEDS: SERTRALINE HCL 50 MG TABLET PO SCH (10:49)
--- NOTE | 2018-09-25 12:14 | PDOC CONSULTATION ---
Consultation Consult Date: 09/25/18 Consult reason:: AK I. History of Present Illness Admission Date/PCP: 09/24/18 18:23 RYAN JOHNSON MD History of Present Illness: RENETTA ARITA is a 43 year old female with a history of possible systemic lupus erythematosus but without any renal involvement so far as per patient, generalized fibromyalgia was admitted yesterday with history of nausea and constipation going on for approximately 2 weeks. She has hardly been eating for the same amount of time. She says she has been doing some amount of fluids but she cannot remember. She has had intermittent symptoms suggestive of possible orthostasis.She has been taking Celebrex 2 tablets twice daily for the last couple of years. She is also on small doses of furosemide. She is also on other medications like Lyrica, amitriptyline and and such. She denies any history of sore throat, fever or chills. No history of dysuria hematuria. She still makes urine. She has some polyarthralgia especially of the small joints but also involves the larger joints which is been going on for a long time. No history of any skin rash though she gives a history of butterfly rash a year or so ago. Evaluations in the ER revealed that the patient had LORRAINE with a creatinine of 4+ and she was acidotic. Potassium today is a 6+ and she has been treated. She does not recall being told she has CKD. As per perusal of notes from admitting hospitalist apparently he did speak with Dr. Shi the electrical apprentice and apparently the labs did not show any features of CKD. Currently on seeing the patient complains of generalized pains with tender muscles. No history of any heliotropic rash, swollen joints or hematuria. She has no appetite. She has been begun on IV fluids. Labs and medications were reviewed. Renal ultrasound was unremarkable for any obstructive features. Urine was bland. There is no proteinuria. Past Medical History Cardiac Medical History: Denies: Atrial Fibrillation Pulmonary Medical History: Denies: Asthma, Sleep Apnea Neurological Medical History: Denies: Seizures Endocrine Medical History: Reports: Hypothyroidism Denies: Diabetes Mellitus Type 1 Renal/ Medical History: Denies: End Stage Renal Disease GI Medical History: Denies: Cirrhosis, Gastroesophageal Reflux Disease, Hepatitis Musculoskeltal Medical History: Reports: Arthritis Psychiatric Medical History: Reports: Depression Denies: Alcohol Dependency, Tobacco Dependency Infectious Medical History: Denies: Hepatitis C, HIV Past Surgical History Past Surgical History: Reports: Orthopedic Surgery - left knee, Tonsillectomy Social History Lives with: Spouse/Significant other Smoking Status: Never Smoker Frequency of Alcohol Use: Occasional Hx Recreational Drug Use: No Hx Prescription Drug Abuse: No Family History Parental Family History Reviewed: Yes - Negative for CKD or ESRD or lupus. Children Family History Reviewed: No Sibling(s) Family History Reviewed.: No Medication/Allergy Home Medications: Bupropion HCl [Bupropion Xl] 150 mg PO DAILY 09/24/18 Celecoxib [Celebrex 200 mg Capsule] 200 mg PO Q12 09/24/18 Ferrous Gluconate 324 mg PO DAILY 09/24/18 Furosemide [Lasix 20 mg Tablet] 20 mg PO DAILY 09/24/18 Levothyroxine Sodium [Synthroid 0.025 mg Tablet] 25 mcg PO DAILY 09/24/18 Nortriptyline HCl [Pamelor] 75 mg PO DAILY 09/24/18 Oxycodone HCl/Acetaminophen [Endocet 5-325 Tablet] 1 each PO Q6 09/24/18 Pregabalin [Lyrica] 150 mg PO Q8 09/24/18 Sertraline HCl [Zoloft] 100 mg PO DAILY 09/24/18 Sumatriptan Succinate [Imitrex 100 Mg Tablet] 100 mg PO BIDP PRN 09/24/18 Topiramate 50 mg PO Q12 09/24/18 Allergies/Adverse Reactions: No Known Allergies Allergy (Unverified 09/24/18 12:07) Review of Systems Constitutional: PRESENT: anorexia, fatigue, weakness. ABSENT: chills, fever(s), headache(s), night sweats Ears: ABSENT: hearing changes Nose, Mouth, and Throat: ABSENT: headache(s), mouth pain, sore throat Cardiovascular: ABSENT: chest pain, dyspnea on exertion, edema, orthropnea, palp itations Respiratory: ABSENT: cough, hemoptysis Gastrointestinal: PRESENT: bloating, constipation. ABSENT: abdominal pain, diarrhea, dysphagia, hematemesis, hematochezia Genitourinary: ABSENT: difficulty urinating, dysuria, hematuria Musculoskeletal: ABSENT: back pain, deformity, joint swelling Integumentary: ABSENT: diaphoresis, erythema, lesions, pruritus, rash Neurological: ABSENT: abnormal movements, abnormal speech, confusion, convulsions, focal weakness, frequent falls, lack of coordination, memory loss, paresthesias Psychiatric: PRESENT: anxiety. ABSENT: depression, hallucinations, homidical ideation, suicidal ideation Hematologic/Lymphatic: ABSENT: easy bleeding, easy bruising, lymphadenopathy Physical Exam Vital Signs: Temp Pulse Resp BP Pulse Ox 97.4 F 79 17 135/76 H 100 09/25/18 07:59 09/25/18 07:59 09/25/18 07:59 09/25/18 07:59 09/25/18 07:59 Intake & Output 09/24/18 09/25/18 09/26/18 06:59 06:59 06:59 Intake Total 1317 Balance 1317 Weight 131.1 kg General appearance: PRESENT: no acute distress, obese Eye exam: PRESENT: conjunctiva pink, EOMI, PERRLA Ear exam: PRESENT: normal external ear exam Mouth exam: PRESENT: neck supple. ABSENT: moist Neck exam: ABSENT: lymphadenopathy, meningismus, tenderness, thyromegaly, tracheal deviation Respiratory exam: PRESENT: clear to auscultation silvina. ABSENT: crackles Cardiovascular exam: PRESENT: +S1, +S2 GI/Abdominal exam: PRESENT: normal bowel sounds, soft. ABSENT: organomegaly, tenderness Extremities exam: ABSENT: pedal edema Musculoskeletal exam: ABSENT: deformity, full ROM, normal inspection, tenderness Neurological exam: PRESENT: alert - But drowsy and rather sleepy. However she stays awake and is able to answer questions appropriately., oriented to person, oriented to place, oriented to time Psychiatric exam: PRESENT: flat affect Skin exam: ABSENT: cyanosis, erythema, mottled, rash Results Laboratory Results: 09/25/18 05:55 09/25/18 10:00 09/24/18 09/24/18 09/24/18 13:47 14:46 14:46 WBC 6.5 RBC 4.34 Hgb 11.6 L Hct 35.2 L MCV 81 MCH 26.8 L MCHC 33.1 RDW 14.5 H Plt Count 303 Seg Neutrophils % 67.0 Lymphocytes % 23.8 Monocytes % 6.0 Eosinophils % 2.8 Basophils % 0.4 Absolute Neutrophils 4.3 Absolute Lymphocytes 1.5 Absolute Monocytes 0.4 Absolute Eosinophils 0.2 Absolute Basophils 0.0 Sodium 139.9 Potassium 5.1 H Chloride 111 H Carbon Dioxide 14 L Anion Gap 15 BUN 69 H Creatinine 4.33 H Est GFR ( Amer) 14 L Est GFR (Non-Af Amer) 11 L Glucose 89 Calcium 9.1 Phosphorus Magnesium 2.3 Total Bilirubin 0.3 AST 21 ALT 29 Alkaline Phosphatase 132 H Total Protein 8.1 Albumin 4.4 TSH Free T4 Free T3 pg/mL PTH Intact Urine Color YELLOW Urine Appearance SLIGHTLY-CLOUDY Urine pH 5.0 Ur Specific [place] 1.013 Urine Protein NEGATIVE Urine Glucose (UA) NEGATIVE Urine Ketones NEGATIVE Urine Blood NEGATIVE Urine Nitrite NEGATIVE Ur Leukocyte Esterase SMALL H Urine WBC (Auto) 21 Urine RBC (Auto) 5 09/24/18 09/24/18 09/25/18 14:46 14:46 05:55 WBC 8.6 RBC 4.76 Hgb 12.6 Hct 38.8 MCV 82 MCH 26.5 L MCHC 32.5 RDW 14.4 H Plt Count 285 Seg Neutrophils % 70.0 Lymphocytes % 21.1 Monocytes % 5.4 Eosinophils % 3.1 Basophils % 0.4 Absolute Neutrophils 6.0 Absolute Lymphocytes 1.8 Absolute Monocytes 0.5 Absolute Eosinophils 0.3 Absolute Basophils 0.0 Sodium Potassium Chloride Carbon Dioxide Anion Gap BUN Creatinine Est GFR ( Amer) Est GFR (Non-Af Amer) Glucose Calcium Phosphorus Magnesium Total Bilirubin AST ALT Alkaline Phosphatase Total Protein Albumin TSH 4.48 Cancelled Free T4 0.72 L Free T3 pg/mL 3.52 PTH Intact Urine Color Urine Appearance Urine pH Ur Specific [place] Urine Protein Urine Glucose (UA) Urine Ketones Urine Blood Urine Nitrite Ur Leukocyte Esterase Urine WBC (Auto) Urine RBC (Auto) 09/25/18 09/25/18 09/25/18 05:55 07:34 10:00 WBC RBC Hgb Hct MCV MCH MCHC RDW Plt Count Seg Neutrophils % Lymphocytes % Monocytes % Eosinophils % Basophils % Absolute Neutrophils Absolute Lymphocytes Absolute Monocytes Absolute Eosinophils Absolute Basophils Sodium 145.0 Potassium 6.4 H* D 5.7 H Chloride 115 H Carbon Dioxide 18 L Anion Gap 12 BUN 67 H Creatinine 4.01 H Est GFR ( Amer) 15 L Est GFR (Non-Af Amer) 12 L Glucose 70 L Calcium 9.7 Phosphorus 6.1 H Magnesium 2.5 H Total Bilirubin 0.5 AST 53 H ALT 35 Alkaline Phosphatase 146 H Total Protein 9.1 H Albumin 4.9 TSH Free T4 Free T3 pg/mL PTH Intact 249.8 H Urine Color Urine Appearance Urine pH Ur Specific [place] Urine Protein Urine Glucose (UA) Urine Ketones Urine Blood Urine Nitrite Ur Leukocyte Esterase Urine WBC (Auto) Urine RBC (Auto) 09/24/18 14:46 Troponin I < 0.012 Impressions: Head CT 09/24/18 14:43 IMPRESSION: NORMAL BRAIN CT WITHOUT CONTRAST. EVIDENCE OF ACUTE STROKE: NO. Renal Ultrasound 09/25/18 00:00 IMPRESSION: 1. Prominent echogenic renal pyramids bilaterally. 2. Increased renal cortical echogenicity. 3. Otherwise, unremarkable retroperitoneal ultrasound. Assessment & Plan - Diagnosis (1) Acute renal failure Is this a current diagnosis for this admission?: Yes Plan: Apparently patient had normal renal functions as per discussions done by hospitalist and Dr. Shi/electrical apprentice because apparently patient says had labs done July of this year. However I do not see any features suggestive of lupus nephritis given her bland urine. However I believe her present condition is multifactorial LORRAINE from result of dehydration and being on Lasix and usage of Coates 2 inhibitors.Patient also showed signs of drug toxicities from likes of Lyrica, amitriptyline, narcotics and such. Patient has had all his culprit medications on hold and patient has begun on IV fluids and there is a slight improvement in creatinine today as compared to yesterday which augurs well for the patient. Renal ultrasound was unremarkable. I do not plan to do a renal biopsy unlike yesterday as per discussions done with the hospitalist I thought that would be the case.Continue present lines of management including treatment of her hyperkalemia. I have adjusted the IV fluid rate. Acidosis is improving. Advised patient against usage of NSAIDs/Coates 2 inhibitors in the future given her presentation of the moment. At the moment I do not see any indications for renal replacements and I hope that we shall see some continuing improvement in her renal functions over the next few days hop efully.His renal functions do not continue to improve in the next day or 2 then will reconsider renal biopsy. (2) Metabolic acidosis Plan: Improving. Continue present management. (3) Dehydration Plan: Obviously she became nauseous which likely is primary than secondary from her LORRAINE. This led to poor intake and she had appropriate drugs which then became nephrotoxic which all led to the present situation. Continue IV fluids. (4) Constipation Plan: Ordered soapsuds enema. (5) Drug toxicity Plan: In the face of AK I. This led to more complex presentation. (6) Fibromyalgia Is this a current diagnosis for this admission?: Yes Plan: As per rheumatology. Have ordered serologies which are pending. However advised caution with use of NSAIDs/Coates 2. (7) Hyperkalemia Plan: 6.4 today but posttreatment is down to 5.7. Needs to continue another dose of Kayexalate and repeat potassium this evening. (8) Lupus Is this a current diagnosis for this admission?: Yes Plan: Have history of skin lesions and possible polyarthralgia is suggestive of lupus especially with the presence of a butterfly rash. I believe the electrical apprentice must have done serologies that also confirmed the diagnosis. However I do not see any renal involvement at the moment.If her renal functions are not improving in the next day or 2 will consider renal biopsy.
--- NOTE | 2018-09-25 12:46 | EKG REPORT ---
SEVERITY:- BORDERLINE ECG - SINUS RHYTHM BORDERLINE LEFT AXIS DEVIATION LOW VOLTAGE THROUGHOUT : Confirmed by: Linnette Nevarez MD 25-Sep-2018 12:45:14
[2018-09-25] MEDS: ONDANSETRON HCL INJ/PF 4 MG/2 ML SDV IV PRN ×2 (16:52→22:41)
--- NOTE | 2018-09-25 17:36 | PDOC PROGRESS REPORT ---
Subjective Progress Note for:: 09/25/18 Subjective:: Patient states she feels a little better today planes of some nausea and some constipation now. Patient was n.p.o. this morning for possible renal biopsy however that has been postponed. Patient was hyperkalemic this morning so have increased her IV fluids. Treated the hyperkalemia. Reason For Visit: ACUTE RENAL FAILURE Physical Exam Vital Signs: Temp Pulse Resp BP Pulse Ox 98.4 F 88 16 105/63 100 09/25/18 15:18 09/25/18 15:18 09/25/18 15:18 09/25/18 15:18 09/25/18 15:18 Intake & Output 09/24/18 09/25/18 09/26/18 06:59 06:59 06:59 Intake Total 1317 488 Output Total 600 Balance 1317 -112 Weight 131.1 kg General appearance: PRESENT: no acute distress, cooperative Eye exam: PRESENT: EOMI. ABSENT: scleral icterus Mouth exam: PRESENT: moist, neck supple Neck exam: ABSENT: full ROM, JVD, lymphadenopathy, tenderness, thyromegaly, tracheal deviation Respiratory exam: PRESENT: clear to auscultation silvina, unlabored. ABSENT: accessory muscle use Cardiovascular exam: PRESENT: RRR GI/Abdominal exam: PRESENT: normal bowel sounds, soft. ABSENT: ascites, tenderness Extremities exam: ABSENT: calf tenderness Musculoskeletal exam: PRESENT: ambulatory Neurological exam: PRESENT: alert, oriented to person, oriented to place, oriented to time, oriented to situation Skin exam: PRESENT: dry, normal color, warm Results Laboratory Results: 09/25/18 05:55 09/25/18 10:00 09/24/18 09/25/18 09/25/18 14:46 05:55 05:55 WBC 8.6 RBC 4.76 Hgb 12.6 Hct 38.8 MCV 82 MCH 26.5 L MCHC 32.5 RDW 14.4 H Plt Count 285 Seg Neutrophils % 70.0 Lymphocytes % 21.1 Monocytes % 5.4 Eosinophils % 3.1 Basophils % 0.4 Absolute Neutrophils 6.0 Absolute Lymphocytes 1.8 Absolute Monocytes 0.5 Absolute Eosinophils 0.3 Absolute Basophils 0.0 Sodium 145.0 Potassium 6.4 H* D Chloride 115 H Carbon Dioxide 18 L Anion Gap 12 BUN 67 H Creatinine 4.01 H Est GFR ( Amer) 15 L Est GFR (Non-Af Amer) 12 L Glucose 70 L Calcium 9.7 Phosphorus 6.1 H Magnesium 2.5 H Total Bilirubin 0.5 AST 53 H ALT 35 Alkaline Phosphatase 146 H Total Protein 9.1 H Albumin 4.9 TSH Cancelled PTH Intact 09/25/18 09/25/18 07:34 10:00 WBC RBC Hgb Hct MCV MCH MCHC RDW Plt Count Seg Neutrophils % Lymphocytes % Monocytes % Eosinophils % Basophils % Absolute Neutrophils Absolute Lymphocytes Absolute Monocytes Absolute Eosinophils Absolute Basophils Sodium Potassium 5.7 H Chloride Carbon Dioxide Anion Gap BUN Creatinine Est GFR ( Amer) Est GFR (Non-Af Amer) Glucose Calcium Phosphorus Magnesium Total Bilirubin AST ALT Alkaline Phosphatase Total Protein Albumin TSH PTH Intact 249.8 H 09/24/18 09/25/18 14:46 10:00 Creatine Kinase 32 Troponin I < 0.012 Impressions: Head CT 09/24/18 14:43 IMPRESSION: NORMAL BRAIN CT WITHOUT CONTRAST. EVIDENCE OF ACUTE STROKE: NO. Renal Ultrasound 09/25/18 00:00 IMPRESSION: 1. Prominent echogenic renal pyramids bilaterally. 2. Increased renal cortical echogenicity. 3. Otherwise, unremarkable retroperitoneal ultrasound. Assessment & Plan - Diagnosis (1) Acute renal failure Is this a current diagnosis for this admission?: Yes Plan: Slight improvement in renal function. Was hyperkalemic this morning. Received calcium gluconate and Kayexalate as well as an increase in fluids to help correct with the hyperkalemia. Continue IV fluid fluids and careful monitoring of renal function. This may be secondary to NSAID use with Celebrex. Patient denies any nausea vomiting constipation diarrhea or other acute causes. She has recently started on a keto diet. This case was discussed with Dr. Kline from nephrology. There is a concern for lupus nephritis given her history of lupus and acute onset of the renal failure. Will order several labs to include Anka sed rate hepatitis panel coag studies and lupus profile. We will get patient set up for renal biopsy. In the meantime continue IV hydration. Will monitor closely. (2) Hyperkalemia Is this a current diagnosis for this admission?: Yes Plan: Potassium 6.2 this morning. Repeat prior to intervention was 5.7 still showing hyperkalemia received calcium gluconate and oxalate as well as fluids to help with the elevated potassium level. 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 He stated that she does have lupus but she does not have active lupus. She was last seen in July of this year. At that point her labs look normal. (4) Fibromyalgia Is this a current diagnosis for this admission?: Yes Plan: Holding some of her home medications due to renal function. We will continue to monitor. Added Tylenol for any acute pain. (5) Hypothyroidism Qualifiers: Hypothyroidism type: unspecified Qualified Code(s): E03.9 - Hypothyroidism, unspecified Is this a current diagnosis for this admission?: Yes Plan: We will repeat TSH in the morning. We will continue home replacement for now. - Time Time Spent with patient: 25-34 minutes Medications reviewed and adjusted accordingly: Yes Anticipated discharge: Home
[2018-09-25] MEDS: NORMAL SALINE 1000 ML 1,000 ML IV PRN (22:42)
[2018-09-26] MEDS: HEPARIN SOD (PORCINE) 5,000 UNIT/ML 1 ML SYRINGE SUBCUT SCH ×3 (05:50→22:23)
[2018-09-26] MEDS: OXYCODONE-ACETAMINOPHEN 5-325 MG TABLET PO PRN ×3 (05:53→22:29)
[2018-09-26 06:45] LABS: ABSOLUTE EOSINOPHILS # (AUTO) 0.2 10^3/uL (0.0-0.6); ABSOLUTE LYMPHOCYTES (AUTO) 1.6 10^3/uL (0.5-4.7); ABSOLUTE MONOCYTES (AUTO) 0.5 10^3/uL (0.1-1.4); ABSOLUTE NEUT (AUTO) 3.8 10^3/uL (1.7-8.2); BASOPHILS % (AUTO) 0.4 % (0-2); EOSINOPHILS % (AUTO) 2.6 % (0-6); HEMATOCRIT 30.2 % (36.0-47.0); MEAN CORPUSCULAR HEMOGLOBIN 26.7 pg (27.0-33.4); MEAN CORPUSCULAR HGB CONC 33.1 g/dL (32.0-36.0); MEAN CORPUSCULAR VOLUME 81 fl (80-97); MONOCYTES % (AUTO) 7.6 % (3-13); PLATELET COUNT 260 10^3/uL (150-450); RED BLOOD COUNT 3.74 10^6/uL (3.72-5.28); RED CELL DISTRIBUTION WIDTH 14.3 % (11.5-14.0); SEGMENTED NEUTROPHILS % (AUTO) 63.4 % (42-78); TOTAL CELLS COUNTED % (AUTO) 100 %
[2018-09-26 07:01] LABS: ALANINE AMINOTRANSFERASE 44 U/L (9-52); ALBUMIN 3.6 g/dL (3.5-5.0); ALKALINE PHOSPHATASE 113 U/L (38-126); ANION GAP 12 (5-19); ASPARTATE AMINO TRANSFERASE 32 U/L (14-36); BILIRUBIN,DIRECT 0.3 mg/dL (0.0-0.4); BILIRUBIN,TOTAL 0.3 mg/dL (0.2-1.3); BLOOD UREA NITROGEN 53 mg/dL (7-20); CALCIUM 8.3 mg/dL (8.4-10.2); CARBON DIOXIDE 16 mmol/L (22-30); CHLORIDE 114 mmol/L (98-107); GLUCOSE 79 mg/dL (75-110); POTASSIUM 4.8 mmol/L (3.6-5.0); SODIUM 141.6 mmol/L (137-145); TOTAL PROTEIN 6.4 g/dL (6.3-8.2)
[2018-09-26] MEDS: LEVOTHYROXINE SODIUM 0.025 MG TABLET PO SCH (08:32)
[2018-09-26] MEDS: NORMAL SALINE 1000 ML 1,000 ML IV PRN ×2 (08:33→19:51)
[2018-09-26 08:42] LABS: HEPATITIS A AB IGM Negative (Negative); HEPATITIS B CORE AB IGM Negative (Negative); HEPATITS B SURFACE ANTIGEN Negative (Negative)
[2018-09-26 10:44] LABS: HEPATITIS C VIRUS ANTIBODY <0.1 s/co ratio (0.0-0.9)
[2018-09-26] MEDS: BUPROPION HCL 75 MG TABLET PO SCH ×2 (10:47→22:30)
[2018-09-26] MEDS: SERTRALINE HCL 50 MG TABLET PO SCH (10:47)
[2018-09-26] MEDS: ONDANSETRON HCL INJ/PF 4 MG/2 ML SDV IV PRN (10:53)
[2018-09-26] MEDS ORDERED: SUMATRIPTAN SUCCINATE 100 MG TABLET PO PRN (11:07)
--- NOTE | 2018-09-26 11:21 | PDOC PROGRESS REPORT ---
Subjective Progress Note for:: 09/26/18 Subjective:: 09/26/2018 no acute events in the last 24 hours. Kidney biopsy was canceled. Creatinine was improved to 3.33 today. Patient is complaining of pain scale of 8 x 10 in the back presently on Percocet 1 tablet every 6 hours increase the pain medications to 2 tablets every 6 hours. Plan to do the labs again tomorrow to continue to monitor the kidney function. Reason For Visit: ACUTE RENAL FAILURE Physical Exam Vital Signs: Temp Pulse Resp BP Pulse Ox 97.4 F 79 16 119/49 L 100 09/26/18 09:29 09/26/18 09:29 09/26/18 09:29 09/26/18 09:29 09/26/18 09:29 Intake & Output 09/25/18 09/26/18 09/27/18 06:59 06:59 06:59 Intake Total 1317 3872 985 Output Total 1700 Balance 1317 2172 985 Weight 131.1 kg 134.6 kg General appearance: PRESENT: mild distress Head exam: PRESENT: atraumatic Eye exam: PRESENT: PERRLA Mouth exam: PRESENT: moist, tongue midline Neck exam: ABSENT: carotid bruit, JVD, lymphadenopathy, thyromegaly Respiratory exam: PRESENT: clear to auscultation silvina. ABSENT: rales, rhonchi, wheezes Cardiovascular exam: PRESENT: RRR. ABSENT: diastolic murmur, rubs, systolic murmur GI/Abdominal exam: PRESENT: other - Mild pain in the right costovertebral angle. Extremities exam: PRESENT: full ROM. ABSENT: calf tenderness, clubbing, pedal edema Neurological exam: PRESENT: alert, awake, oriented to person, oriented to place, oriented to time, oriented to situation, CN II-XII grossly intact. ABSENT: motor sensory deficit Psychiatric exam: PRESENT: appropriate affect, normal mood. ABSENT: homicidal ideation, suicidal ideation Results Laboratory Results: 09/26/18 06:17 09/26/18 06:17 09/26/18 09/26/18 06:17 06:17 WBC 6.0 RBC 3.74 Hgb 10.0 L D Hct 30.2 L MCV 81 MCH 26.7 L MCHC 33.1 RDW 14.3 H Plt Count 260 Seg Neutrophils % 63.4 Lymphocytes % 26.0 Monocytes % 7.6 Eosinophils % 2.6 Basophils % 0.4 Absolute Neutrophils 3.8 Absolute Lymphocytes 1.6 Absolute Monocytes 0.5 Absolute Eosinophils 0.2 Absolute Basophils 0.0 Sodium 141.6 Potassium 4.8 Chloride 114 H Carbon Dioxide 16 L Anion Gap 12 BUN 53 H Creatinine 3.30 H Est GFR ( Amer) 19 L Est GFR (Non-Af Amer) 15 L Glucose 79 Calcium 8.3 L Total Bilirubin 0.3 AST 32 ALT 44 Alkaline Phosphatase 113 Total Protein 6.4 Albumin 3.6 09/24/18 09/25/18 14:46 10:00 Creatine Kinase 32 Troponin I < 0.012 Impressions: Head CT 09/24/18 14:43 IMPRESSION: NORMAL BRAIN CT WITHOUT CONTRAST. EVIDENCE OF ACUTE STROKE: NO. Renal Ultrasound 09/25/18 00:00 IMPRESSION: 1. Prominent echogenic renal pyramids bilaterally. 2. Increased renal cortical echogenicity. 3. Otherwise, unremarkable retroperitoneal ultrasound. Assessment & Plan - Diagnosis (1) Acute renal failure Is this a current diagnosis for this admission?: Yes Plan: 09/26/[id number]-wben-old female with history of lupus admitted for acute renal failure unfortunately baseline creatinine is not available. On admission crea tinine is 4.3 improved to 3.3 today. Patient admitted is using Celebrex and ibuprofen at home for pain I strongly advised her not to take those medications. Plan is to recheck chemistry tomorrow. (2) Lupus Is this a current diagnosis for this admission?: No Plan: 09/26/2018-patient is given the history of lupus he has also family history of lupus. She follows with [facility] as an outpatient. Initially plan is here to do the renal biopsy here but it was postponed. (3) Hyperkalemia Is this a current diagnosis for this admission?: Yes Plan: 09/26/2018-patient potassium level is 4.8 today hyperkalemia secondary to acute kidney failure is resolved. (4) Hypothyroidism Qualifiers: Hypothyroidism type: unspecified Qualified Code(s): E03.9 - Hypothyroidism, unspecified Is this a current diagnosis for this admission?: No Plan: 09/26/2018-TSH is 4.88 patient has history of hypothyroidism TSH levels are within therapeutic range. - Time Medications reviewed and adjusted accordingly: Yes Anticipated discharge: Home
[2018-09-26 12:39] LABS: ANTICHROMATIN AB <0.2 AI (0.0-0.9); CENTROMERE B AB <0.2 AI (0.0-0.9); JO-1 ANTIBODY (ANACOMP) <0.2 AI (0.0-0.9); SJOGREN'S ANTI-SS-B AB <0.2 AI (0.0-0.9); SJOGREN'S SS-A ANTIBODY <0.2 AI (0.0-0.9)
[2018-09-26 13:39] LABS: DILUTE RUSSELL VIPOR VENOM 36.5 sec (0.0-47.0); PTT-LA 31.4 sec (0.0-51.9); THROMBIN TIME 18.8 sec (0.0-23.0)
[2018-09-26] MEDS: PREGABALIN 75 MG CAPSULE PO SCH ×2 (14:18→22:30)
[2018-09-26 14:46] LABS: DNA DOUBLE STRAND ANTIBODY ANA <1 IU/mL (0-9); LUPUS PANEL INTERPRETATION Comment: (.)
--- NOTE | 2018-09-26 14:51 | PDOC PROGRESS REPORT ---
Subjective Progress Note for:: 09/26/18 Reason For Visit: Patient generally doing better. She does not look so tired and lethargic like this all her yesterday. Appetite still not back. No complaints of any abdominal pains no nausea vomiting. No extremity GI bleeds. Labs and medications reviewed shows an improving creatinine which augurs well for the patient. Physical Exam Vital Signs: Temp Pulse Resp BP Pulse Ox 97.5 F 85 20 125/62 100 09/26/18 12:16 09/26/18 12:16 09/26/18 12:16 09/26/18 12:16 09/26/18 12:16 Intake & Output 09/25/18 09/26/18 09/27/18 06:59 06:59 06:59 Intake Total 1317 3872 985 Output Total 1700 Balance 1317 2172 985 Weight 131.1 kg 134.6 kg General appearance: PRESENT: no acute distress Respiratory exam: PRESENT: clear to auscultation silvina. ABSENT: crackles Cardiovascular exam: PRESENT: +S1, +S2 GI/Abdominal exam: PRESENT: normal bowel sounds, soft. ABSENT: organomegaly, tenderness Extremities exam: ABSENT: pedal edema Neurological exam: PRESENT: alert, awake, oriented to person, oriented to place Psychiatric exam: PRESENT: appropriate affect Skin exam: ABSENT: erythema, mottled, rash Results Laboratory Results: 09/26/18 06:17 09/26/18 06:17 09/26/18 09/26/18 06:17 06:17 WBC 6.0 RBC 3.74 Hgb 10.0 L D Hct 30.2 L MCV 81 MCH 26.7 L MCHC 33.1 RDW 14.3 H Plt Count 260 Seg Neutrophils % 63.4 Lymphocytes % 26.0 Monocytes % 7.6 Eosinophils % 2.6 Basophils % 0.4 Absolute Neutrophils 3.8 Absolute Lymphocytes 1.6 Absolute Monocytes 0.5 Absolute Eosinophils 0.2 Absolute Basophils 0.0 Sodium 141.6 Potassium 4.8 Chloride 114 H Carbon Dioxide 16 L Anion Gap 12 BUN 53 H Creatinine 3.30 H Est GFR ( Amer) 19 L Est GFR (Non-Af Amer) 15 L Glucose 79 Calcium 8.3 L Total Bilirubin 0.3 AST 32 ALT 44 Alkaline Phosphatase 113 Total Protein 6.4 Albumin 3.6 09/24/18 09/25/18 14:46 10:00 Creatine Kinase 32 Troponin I < 0.012 Impressions: Head CT 09/24/18 14:43 IMPRESSION: NORMAL BRAIN CT WITHOUT CONTRAST. EVIDENCE OF ACUTE STROKE: NO. Renal Ultrasound 09/25/18 00:00 IMPRESSION: 1. Prominent echogenic renal pyramids bilaterally. 2. Increased renal cortical echogenicity. 3. Otherwise, unremarkable retroperitoneal ultrasound. Assessment & Plan - Diagnosis (1) Acute renal failure Is this a current diagnosis for this admission?: Yes Plan: Improving creatinine with current treatment principles including IV fluid hydration. Continue the same. Follow with daily chemistries. She could be discharged home once her creatinine is close to 1. Advised patient not to have her be close to any NSAIDs or Coates 2 inhibitors unless absolutely necessary and that too only for short-term . (2) Metabolic acidosis Plan: Start on sodium bicarbonate tablets. Monitor (3) Dehydration Plan: Continue on IF fluids. (4) Constipation Plan: Better with enema. (5) Drug toxicity Plan: Advised to avoid NSAIDS/ Coates 2 in the future. (6) Fibromyalgia Is this a current diagnosis for this admission?: Yes Plan: She has cut back on her Percocet and therefore patient is more awake and alert. Discussed lesser dosing in the face of severe AK I. (7) Hyperkalemia Is this a current diagnosis for this admission?: Yes Plan: Resolved. (8) Lupus Is this a current diagnosis for this admission?: No Plan: Affecting her skin and possibly joints. However no evidence currently of the moment indicated renal lupus nephritis. Serologies pending.As mentioned earlier her urine was bland.
[2018-09-26 17:36] LABS: ANTIMYELOPEROXIDASE (MPO) AB <9.0 U/mL (0.0-9.0); CYTOPLASMIC (C-ANCA) <1:20 titer (Neg:<1:20)
[2018-09-26] MEDS ORDERED: (PENDING PHARMACY ID) (Topiramate [Topiramate] 50 MG) PO SCH (22:00)
[2018-09-26] MEDS: TOPIRAMATE 25 MG TABLET PO SCH (22:30)
[2018-09-26] MEDS: SODIUM BICARBONATE 650 MG TABLET PO SCH (22:30)
[2018-09-27 04:57] LABS: ABSOLUTE EOSINOPHILS # (AUTO) 0.2 10^3/uL (0.0-0.6); ABSOLUTE LYMPHOCYTES (AUTO) 1.7 10^3/uL (0.5-4.7); ABSOLUTE MONOCYTES (AUTO) 0.4 10^3/uL (0.1-1.4); ABSOLUTE NEUT (AUTO) 3.9 10^3/uL (1.7-8.2); BASOPHILS % (AUTO) 0.6 % (0-2); HEMATOCRIT 34.3 % (36.0-47.0); HEMOGLOBIN 11.2 g/dL (12.0-15.5); LYMPHOCYTES % (AUTO) 27.7 % (13-45); MEAN CORPUSCULAR HEMOGLOBIN 26.4 pg (27.0-33.4); MEAN CORPUSCULAR HGB CONC 32.8 g/dL (32.0-36.0); MEAN CORPUSCULAR VOLUME 81 fl (80-97); MONOCYTES % (AUTO) 6.2 % (3-13); PLATELET COUNT 281 10^3/uL (150-450); RED BLOOD COUNT 4.26 10^6/uL (3.72-5.28); RED CELL DISTRIBUTION WIDTH 14.5 % (11.5-14.0); SEGMENTED NEUTROPHILS % (AUTO) 62.5 % (42-78); TOTAL CELLS COUNTED % (AUTO) 100 %; WHITE BLOOD COUNT 6.2 10^3/uL (4.0-10.5)
[2018-09-27 05:19] LABS: ALANINE AMINOTRANSFERASE 47 U/L (9-52); ALBUMIN 4.1 g/dL (3.5-5.0); ALKALINE PHOSPHATASE 137 U/L (38-126); ANION GAP 12 (5-19); ASPARTATE AMINO TRANSFERASE 41 U/L (14-36); BILIRUBIN,DIRECT 0.2 mg/dL (0.0-0.4); BILIRUBIN,TOTAL 0.2 mg/dL (0.2-1.3); BLOOD UREA NITROGEN 45 mg/dL (7-20); CALCIUM 8.8 mg/dL (8.4-10.2); CARBON DIOXIDE 19 mmol/L (22-30); CHLORIDE 112 mmol/L (98-107); GLUCOSE 79 mg/dL (75-110); POTASSIUM 4.7 mmol/L (3.6-5.0); SODIUM 143.3 mmol/L (137-145); TOTAL PROTEIN 7.8 g/dL (6.3-8.2)
[2018-09-27] MEDS: OXYCODONE-ACETAMINOPHEN 5-325 MG TABLET PO PRN ×2 (06:10→14:40)
[2018-09-27] MEDS: PREGABALIN 75 MG CAPSULE PO SCH ×3 (06:10→22:19)
[2018-09-27] MEDS: NORMAL SALINE 1000 ML 1,000 ML IV PRN ×2 (06:11→18:34)
[2018-09-27] MEDS: HEPARIN SOD (PORCINE) 5,000 UNIT/ML 1 ML SYRINGE SUBCUT SCH ×3 (08:18→22:20)
[2018-09-27] MEDS: LEVOTHYROXINE SODIUM 0.025 MG TABLET PO SCH (08:20)
[2018-09-27] MEDS: ONDANSETRON HCL INJ/PF 4 MG/2 ML SDV IV PRN ×2 (08:25→14:41)
[2018-09-27] MEDS: SODIUM BICARBONATE 650 MG TABLET PO SCH ×2 (10:00→22:19)
[2018-09-27] MEDS: SERTRALINE HCL 50 MG TABLET PO SCH (10:00)
[2018-09-27] MEDS ORDERED: (PENDING PHARMACY ID) (Nortriptyline Hcl [Pamelor] 75 MG) PO SCH (10:00)
[2018-09-27] MEDS ORDERED: (PENDING PHARMACY ID) (Ferrous Gluconate [Ferrous Gluconate] 324 MG) PO SCH (10:00)
[2018-09-27] MEDS: BUPROPION HCL 75 MG TABLET PO SCH ×2 (10:00→22:20)
[2018-09-27] MEDS: TOPIRAMATE 25 MG TABLET PO SCH ×2 (10:00→22:19)
[2018-09-27] MEDS: NORTRIPTYLINE HCL 25 MG CAPSULE PO SCH (10:01)
--- NOTE | 2018-09-27 10:43 | PDOC PROGRESS REPORT ---
Subjective Progress Note for:: 09/27/18 Subjective:: 09/26/2018 no acute events in the last 24 hours. Kidney biopsy was canceled. Creatinine was improved to 3.33 today. Patient is complaining of pain scale of 8 x 10 in the back presently on Percocet 1 tablet every 6 hours increase the pain medications to 2 tablets every 6 hours. Plan to do the labs again tomorrow to continue to monitor the kidney function. No acute events in the last 24 hours. Kidney function is improving. Patient had urinary output of 2.6 L in the last [address] Kline was done. Plan for renal biopsy was canceled for now. Patient is doing well no complaints no concerns from the patient. Afebrile. Reason For Visit: ACUTE RENAL FAILURE Physical Exam Vital Signs: Temp Pulse Resp BP Pulse Ox 97.3 F 76 16 104/62 100 09/27/18 08:00 09/27/18 08:00 09/27/18 08:00 09/27/18 08:00 09/27/18 08:00 Intake & Output 09/26/18 09/27/18 09/28/18 06:59 06:59 07:59 Intake Total 3872 4777 Output Total 1700 2600 Balance 2172 2177 Weight 134.6 kg 132.5 kg General appearance: PRESENT: no acute distress Head exam: PRESENT: atraumatic Eye exam: PRESENT: PERRLA Mouth exam: PRESENT: moist, tongue midline Neck exam: ABSENT: carotid bruit, JVD, lymphadenopathy, thyromegaly Respiratory exam: PRESENT: clear to auscultation silvina. ABSENT: rales, rhonchi, wheezes Cardiovascular exam: PRESENT: RRR. ABSENT: diastolic murmur, rubs, systolic murmur GI/Abdominal exam: PRESENT: normal bowel sounds, soft. ABSENT: distended, guarding, mass, organolmegaly, rebound, tenderness Extremities exam: PRESENT: full ROM. ABSENT: calf tenderness, clubbing, pedal edema Neurological exam: PRESENT: alert, awake, oriented to person, oriented to place, oriented to time, oriented to situation, CN II-XII grossly intact. ABSENT: motor sensory deficit Psychiatric exam: PRESENT: appropriate affect, normal mood. ABSENT: homicidal ideation, suicidal ideation Results Laboratory Results: 09/27/18 04:40 09/27/18 04:40 09/27/18 09/27/18 04:40 04:40 WBC 6.2 RBC 4.26 Hgb 11.2 L Hct 34.3 L MCV 81 MCH 26.4 L MCHC 32.8 RDW 14.5 H Plt Count 281 Seg Neutrophils % 62.5 Lymphocytes % 27.7 Monocytes % 6.2 Eosinophils % 3.0 Basophils % 0.6 Absolute Neutrophils 3.9 Absolute Lymphocytes 1.7 Absolute Monocytes 0.4 Absolute Eosinophils 0.2 Absolute Basophils 0.0 Sodium 143.3 Potassium 4.7 Chloride 112 H Carbon Dioxide 19 L Anion Gap 12 BUN 45 H Creatinine 3.29 H Est GFR ( Amer) 19 L Est GFR (Non-Af Amer) 15 L Glucose 79 Calcium 8.8 Magnesium 1.9 Total Bilirubin 0.2 AST 41 H ALT 47 Alkaline Phosphatase 137 H Total Protein 7.8 Albumin 4.1 09/24/18 09/25/18 14:46 10:00 Creatine Kinase 32 Troponin I < 0.012 Impressions: Head CT 09/24/18 14:43 IMPRESSION: NORMAL BRAIN CT WITHOUT CONTRAST. EVIDENCE OF ACUTE STROKE: NO. Renal Ultrasound 09/25/18 00:00 IMPRESSION: 1. Prominent echogenic renal pyramids bilaterally. 2. Increased renal cortical echogenicity. 3. Otherwise, unremarkable retroperitoneal ultrasound. Assessment & Plan - Diagnosis (1) Acute renal failure Is this a current diagnosis for this admission?: Yes Plan: 09/26/[id number]-aste-old female with history of lupus admitted for acute renal failure unfortunately baseline creatinine is not available. On admission creatinine is 4.3 improved to 3.3 today. Patient admitted is using Celebrex and ibuprofen at home for pain I strongly advised her not to take those medications. Plan is to recheck chemistry tomorrow. 09/[id number]-mzkd-old female with history of lupus admitted for acute on chronic renal failure. We do not have the baseline creatinine. On admission creatinine is 4.3 and it was improved to 3.29 today. Patient is on IV fluids normal saline at 100 cc/h. Patient says initially when she came in she feels metallic taste in the mouth now this metallic taste is going away. Plan is to continue the IV fluids to recheck the labs tomorrow. (2) Lupus Is this a current diagnosis for this admission?: No Plan: 09/26/2018-patient is given the history of lupus he has also family history of lupus. She follows with [facility] as an outpatient. Initially plan is here to do the renal biopsy here but it was postponed. 09/27/2018 patient is given the history of lupus she is follow-up with [facility] as an outpatient as per the information we got presently she does not have any active lupus not on any medications she is also given the history of family history of lupus. So far MARCIO is negative C4 is normal double-stranded DNA antibody is negative, other labs are pending. (3) Hyperkalemia Is this a current diagnosis for this admission?: Yes Plan: 09/26/2018-patient potassium level is 4.8 today hyperkalemia secondary to acute kidney failure is resolved. 09/27/2018 potassium level today is 4.7 hyperkalemia secondary to acute on chronic renal failure is resolved. (4) Hypothyroidism Qualifiers: Hypothyroidism type: unspecified Qualified Code(s): E03.9 - Hypothyroidism, unspecified Is this a current diagnosis for this admission?: No Plan: 09/26/2018-TSH is 4.88 patient has history of hypothyroidism TSH levels are within therapeutic range. 09/27/2018-patient is on levothyroxine 25 mcg daily TSH is 4.88 plan is to continue the present management. - Time Time Spent with patient: 15-24 minutes Medications reviewed and adjusted accordingly: Yes Anticipated discharge: Home
[2018-09-28] MEDS: PREGABALIN 75 MG CAPSULE PO SCH ×3 (05:55→21:04)
[2018-09-28] MEDS: HEPARIN SOD (PORCINE) 5,000 UNIT/ML 1 ML SYRINGE SUBCUT SCH ×3 (05:56→21:05)
[2018-09-28 06:08] LABS: ATYPICAL PANCA <1:20 titer (Neg:<1:20); PERINUCLEAR (P-ANCA) <1:20 titer (Neg:<1:20)
[2018-09-28] MEDS: NORMAL SALINE 1000 ML 1,000 ML IV PRN ×2 (06:12→22:00)
[2018-09-28 07:36] LABS: ABSOLUTE BASOPHILS # (AUTO) 0.1 10^3/uL (0.0-0.2); ABSOLUTE EOSINOPHILS # (AUTO) 0.2 10^3/uL (0.0-0.6); ABSOLUTE LYMPHOCYTES (AUTO) 1.6 10^3/uL (0.5-4.7); ABSOLUTE MONOCYTES (AUTO) 0.3 10^3/uL (0.1-1.4); ABSOLUTE NEUT (AUTO) 4.7 10^3/uL (1.7-8.2); BASOPHILS % (AUTO) 0.7 % (0-2); EOSINOPHILS % (AUTO) 2.8 % (0-6); HEMATOCRIT 31.4 % (36.0-47.0); HEMOGLOBIN 10.4 g/dL (12.0-15.5); LYMPHOCYTES % (AUTO) 23.3 % (13-45); MEAN CORPUSCULAR HEMOGLOBIN 26.8 pg (27.0-33.4); MEAN CORPUSCULAR HGB CONC 33.1 g/dL (32.0-36.0); MEAN CORPUSCULAR VOLUME 81 fl (80-97); MONOCYTES % (AUTO) 4.2 % (3-13); PLATELET COUNT 275 10^3/uL (150-450); RED BLOOD COUNT 3.88 10^6/uL (3.72-5.28); RED CELL DISTRIBUTION WIDTH 14.4 % (11.5-14.0); TOTAL CELLS COUNTED % (AUTO) 100 %; WHITE BLOOD COUNT 6.9 10^3/uL (4.0-10.5)
[2018-09-28 08:00] LABS: ALANINE AMINOTRANSFERASE 79 U/L (9-52); ALBUMIN 3.8 g/dL (3.5-5.0); ALKALINE PHOSPHATASE 136 U/L (38-126); ANION GAP 10 (5-19); ASPARTATE AMINO TRANSFERASE 53 U/L (14-36); BILIRUBIN,DIRECT 0.2 mg/dL (0.0-0.4); BILIRUBIN,TOTAL 0.2 mg/dL (0.2-1.3); BLOOD UREA NITROGEN 37 mg/dL (7-20); CALCIUM 8.8 mg/dL (8.4-10.2); CARBON DIOXIDE 18 mmol/L (22-30); CHLORIDE 112 mmol/L (98-107); GLUCOSE 105 mg/dL (75-110); POTASSIUM 4.7 mmol/L (3.6-5.0); SODIUM 139.5 mmol/L (137-145); TOTAL PROTEIN 7.1 g/dL (6.3-8.2)
[2018-09-28] MEDS: LEVOTHYROXINE SODIUM 0.025 MG TABLET PO SCH (08:54)
--- NOTE | 2018-09-28 10:08 | PDOC PROGRESS REPORT ---
Subjective Progress Note for:: 09/28/18 Subjective:: 09/26/2018 no acute events in the last 24 hours. Kidney biopsy was canceled. Creatinine was improved to 3.33 today. Patient is complaining of pain scale of 8 x 10 in the back presently on Percocet 1 tablet every 6 hours increase the pain medications to 2 tablets every 6 hours. Plan to do the labs again tomorrow to continue to monitor the kidney function. No acute events in the last 24 hours. Kidney function is improving. Patient had urinary output of 2.6 L in the last [address] Kline was done. Plan for renal biopsy was canceled for now. Patient is doing well no complaints no concerns from the patient. Afebrile. 09/28/2018-no acute events in last 24 hours. Patient is afebrile. Patient is telling me this morning she is having occasional twitches parts of her body is twitching was noted while. I requested her to call the nurse if it happens again so we can see and do the further evaluation. Patient complains of slight headaches. Creatinine was much improved to 2.72. Calcium level was within normal range. Reason For Visit: ACUTE RENAL FAILURE Physical Exam Vital Signs: Temp Pulse Resp BP Pulse Ox 97.6 F 88 16 132/69 H 100 09/28/18 08:19 09/28/18 08:19 09/28/18 08:19 09/28/18 08:19 09/28/18 08:19 Intake & Output 09/27/18 09/28/18 09/29/18 05:59 06:59 06:59 Intake Total Output Total Balance Weight General appearance: PRESENT: no acute distress Head exam: PRESENT: atraumatic Eye exam: PRESENT: PERRLA Mouth exam: PRESENT: moist, tongue midline Neck exam: ABSENT: carotid bruit, JVD, lymphadenopathy, thyromegaly Respiratory exam: PRESENT: clear to auscultation silvina. ABSENT: rales, rhonchi, wheezes Cardiovascular exam: PRESENT: RRR. ABSENT: diastolic murmur, rubs, systolic murmur GI/Abdominal exam: PRESENT: normal bowel sounds, soft. ABSENT: distended, guarding, mass, organolmegaly, rebound, tenderness Extremities exam: PRESENT: full ROM. ABSENT: calf tenderness, clubbing, pedal edema Neurological exam: PRESENT: alert, awake, oriented to person, oriented to place, oriented to time, oriented to situation, CN II-XII grossly intact. ABSENT: motor sensory deficit Psychiatric exam: PRESENT: appropriate affect, normal mood. ABSENT: homicidal ideation, suicidal ideation Results Laboratory Results: 09/28/18 07:19 09/28/18 07:19 09/27/18 09/28/18 09/28/18 10:45 07:19 07:19 WBC 6.9 RBC 3.88 Hgb 10.4 L Hct 31.4 L MCV 81 MCH 26.8 L MCHC 33.1 RDW 14.4 H Plt Count 275 Seg Neutrophils % 69.0 Lymphocytes % 23.3 Monocytes % 4.2 Eosinophils % 2.8 Basophils % 0.7 Absolute Neutrophils 4.7 Absolute Lymphocytes 1.6 Absolute Monocytes 0.3 Absolute Eosinophils 0.2 Absolute Basophils 0.1 Sodium 139.5 Potassium 4.7 Chloride 112 H Carbon Dioxide 18 L Anion Gap 10 BUN 37 H Creatinine 2.72 H Est GFR ( Amer) 23 L Est GFR (Non-Af Amer) 19 L Glucose 105 Calcium 8.8 Magnesium 1.7 Total Bilirubin 0.2 AST 53 H ALT 79 H Alkaline Phosphatase 136 H Total Protein 7.1 Albumin 3.8 PTH Intact 286.1 H 09/24/18 09/25/18 14:46 10:00 Creatine Kinase 32 Troponin I < 0.012 Impressions: Head CT 09/24/18 14:43 IMPRESSION: NORMAL BRAIN CT WITHOUT CONTRAST. EVIDENCE OF ACUTE STROKE: NO. Renal Ultrasound 09/25/18 00:00 IMPRESSION: 1. Prominent echogenic renal pyramids bilaterally. 2. Increased renal cortical echogenicity. 3. Otherwise, unremarkable retroperitoneal ultrasound. Assessment & Plan - Diagnosis (1) Acute renal failure Is this a current diagnosis for this admission?: Yes Plan: 09/26/[id number]-dtvj-old female with history of lupus admitted for acute renal failure unfortunately baseline creatinine is not available. On admission crea tinine is 4.3 improved to 3.3 today. Patient admitted is using Celebrex and ibuprofen at home for pain I strongly advised her not to take those medications. Plan is to recheck chemistry tomorrow. 09/27/[id number]-lnpe-old female with history of lupus admitted for acute on chronic renal failure. We do not have the baseline creatinine. On admission creatinine is 4.3 and it was improved to 3.29 today. Patient is on IV fluids normal saline at 100 cc/h. Patient says initially when she came in she feels metallic taste in the mouth now this metallic taste is going away. Plan is to continue the IV fluids to recheck the labs tomorrow. 09/28/[id number]-enxu-old female with history of lupus admitted with acute on chronic renal failure we do not have the latest baseline creatinine on admission creatinine was 4.3 it was improved to 2.72 today. Plan is to continue IV fluid therapy during the hospital stay consultation with the Dr. Kline was done initially plan was to do the renal biopsy now it was on hold. plan is to continue the present management patient denies any metallic taste in the mouth today. (2) Lupus Is this a current diagnosis for this admission?: No Plan: 09/26/2018-patient is given the history of lupus he has also family history of lupus. She follows with county court judge as an outpatient. Initially plan is h ere to do the renal biopsy here but it was postponed. 09/27/2018 patient is given the history of lupus she is follow-up with county court judge as an outpatient as per the information we got presently she does not have any active lupus not on any medications she is also given the history of family history of lupus. So far MARCIO is negative C4 is normal double-stranded DNA antibody is negative, other labs are pending. 09/28/2018-patient has history of lupus she is following with county court judge as an outpatient as per him patient is not having active lupus at this moment. So far the workup is negative. (3) Hyperkalemia Is this a current diagnosis for this admission?: Yes Plan: 09/26/2018-patient potassium level is 4.8 today hyperkalemia secondary to acute kidney failure is resolved. 09/27/2018 potassium level today is 4.7 hyperkalemia secondary to acute on chronic renal failure is resolved. 09/28/2018-today's potassium level is 4.7 hyper kalemia is resolved. Hyperkalemia most likely secondary to acute on chronic renal failure. (4) Hypothyroidism Qualifiers: Hypothyroidism type: unspecified Qualified Code(s): E03.9 - Hypothyroidism, unspecified Is this a current diagnosis for this admission?: No (5) Obesity (BMI 30-39.9) Is this a current diagnosis for this admission?: Yes Plan: 09/28/2018-patient's BMI is more than 35 diet exercise weight loss was advised dietary consult is going to be requested. - Time Time Spent with patient: 15-24 minutes Medications reviewed and adjusted accordingly: Yes Anticipated discharge: Home
[2018-09-28] MEDS: BUPROPION HCL 75 MG TABLET PO SCH ×2 (10:36→21:05)
[2018-09-28] MEDS: SERTRALINE HCL 50 MG TABLET PO SCH (10:36)
[2018-09-28] MEDS: TOPIRAMATE 25 MG TABLET PO SCH ×2 (10:39→21:07)
[2018-09-28] MEDS: NORTRIPTYLINE HCL 25 MG CAPSULE PO SCH (10:40)
[2018-09-28] MEDS: SODIUM BICARBONATE 650 MG TABLET PO SCH ×2 (11:19→21:05)
[2018-09-28] MEDS: OXYCODONE-ACETAMINOPHEN 5-325 MG TABLET PO PRN (18:50)
[2018-09-28] MEDS: ONDANSETRON HCL INJ/PF 4 MG/2 ML SDV IV PRN (18:51)
[2018-09-29] MEDS: PREGABALIN 75 MG CAPSULE PO SCH ×3 (05:28→21:27)
[2018-09-29] MEDS: HEPARIN SOD (PORCINE) 5,000 UNIT/ML 1 ML SYRINGE SUBCUT SCH ×3 (05:29→21:27)
[2018-09-29 07:33] LABS: ABSOLUTE EOSINOPHILS # (AUTO) 0.2 10^3/uL (0.0-0.6); ABSOLUTE LYMPHOCYTES (AUTO) 1.6 10^3/uL (0.5-4.7); ABSOLUTE MONOCYTES (AUTO) 0.4 10^3/uL (0.1-1.4); ABSOLUTE NEUT (AUTO) 4.1 10^3/uL (1.7-8.2); BASOPHILS % (AUTO) 0.6 % (0-2); EOSINOPHILS % (AUTO) 2.9 % (0-6); HEMATOCRIT 30.3 % (36.0-47.0); HEMOGLOBIN 9.9 g/dL (12.0-15.5); MEAN CORPUSCULAR HEMOGLOBIN 26.5 pg (27.0-33.4); MEAN CORPUSCULAR HGB CONC 32.8 g/dL (32.0-36.0); MEAN CORPUSCULAR VOLUME 81 fl (80-97); MONOCYTES % (AUTO) 5.9 % (3-13); PLATELET COUNT 276 10^3/uL (150-450); RED BLOOD COUNT 3.75 10^6/uL (3.72-5.28); RED CELL DISTRIBUTION WIDTH 14.6 % (11.5-14.0); SEGMENTED NEUTROPHILS % (AUTO) 64.6 % (42-78); TOTAL CELLS COUNTED % (AUTO) 100 %; WHITE BLOOD COUNT 6.3 10^3/uL (4.0-10.5)
[2018-09-29 07:51] LABS: ALANINE AMINOTRANSFERASE 60 U/L (9-52); ALBUMIN 3.5 g/dL (3.5-5.0); ALKALINE PHOSPHATASE 109 U/L (38-126); ANION GAP 12 (5-19); ASPARTATE AMINO TRANSFERASE 36 U/L (14-36); BILIRUBIN,DIRECT 0.3 mg/dL (0.0-0.4); BILIRUBIN,TOTAL 0.3 mg/dL (0.2-1.3); BLOOD UREA NITROGEN 29 mg/dL (7-20); CALCIUM 8.6 mg/dL (8.4-10.2); CARBON DIOXIDE 17 mmol/L (22-30); CHLORIDE 112 mmol/L (98-107); GLUCOSE 73 mg/dL (75-110); POTASSIUM 4.7 mmol/L (3.6-5.0); SODIUM 140.7 mmol/L (137-145)
[2018-09-29] MEDS: LEVOTHYROXINE SODIUM 0.025 MG TABLET PO SCH (08:19)
[2018-09-29] MEDS: SERTRALINE HCL 50 MG TABLET PO SCH (09:33)
[2018-09-29] MEDS: SODIUM BICARBONATE 650 MG TABLET PO SCH ×2 (09:33→21:27)
[2018-09-29] MEDS: OXYCODONE-ACETAMINOPHEN 5-325 MG TABLET PO PRN (09:34)
[2018-09-29] MEDS: TOPIRAMATE 25 MG TABLET PO SCH ×2 (09:34→21:28)
[2018-09-29] MEDS: BUPROPION HCL 75 MG TABLET PO SCH ×2 (09:34→21:27)
[2018-09-29] MEDS: NORTRIPTYLINE HCL 25 MG CAPSULE PO SCH (09:38)
--- NOTE | 2018-09-29 10:44 | PDOC PROGRESS REPORT ---
Subjective Progress Note for:: 09/29/18 Subjective:: 09/26/2018 no acute events in the last 24 hours. Kidney biopsy was canceled. Creatinine was improved to 3.33 today. Patient is complaining of pain scale of 8 x 10 in the back presently on Percocet 1 tablet every 6 hours increase the pain medications to 2 tablets every 6 hours. Plan to do the labs again tomorrow to continue to monitor the kidney function. No acute events in the last 24 hours. Kidney function is improving. Patient had urinary output of 2.6 L in the last [address] Kline was done. Plan for renal biopsy was canceled for now. Patient is doing well no complaints no concerns from the patient. Afebrile. 09/28/2018-no acute events in last 24 hours. Patient is afebrile. Patient is telling me this morning she is having occasional twitches parts of her body is twitching was noted while. I requested her to call the nurse if it happens again so we can see and do the further evaluation. Patient complains of slight headaches. Creatinine was much improved to 2.72. Calcium level was within normal range. 09/29/2018-no acute events in the last 24 hours. Patient is afebrile. Lupus were came back negative. Creatinine was improved to 2.51 today. He is to continue the IV fluids recheck the labs tomorrow. Reason For Visit: ACUTE RENAL FAILURE Physical Exam Vital Signs: Temp Pulse Resp BP Pulse Ox 98.3 F 80 16 127/70 H 100 09/29/18 08:34 09/29/18 08:34 09/29/18 08:34 09/29/18 08:34 09/29/18 08:34 Intake & Output 09/28/18 09/29/18 09/30/18 06:59 06:59 06:59 Intake Total 2608 1000 Balance 2608 1000 Weight 132 kg General appearance: PRESENT: no acute distress, obese Head exam: PRESENT: atraumatic Eye exam: PRESENT: PERRLA Mouth exam: PRESENT: moist, tongue midline Respiratory exam: PRESENT: clear to auscultation silvina. ABSENT: rales, rhonchi, wheezes Pulses: PRESENT: normal dorsalis pedis pul GI/Abdominal exam: PRESENT: normal bowel sounds, soft. ABSENT: distended, guarding, mass, organolmegaly, rebound, tenderness Extremities exam: PRESENT: full ROM. ABSENT: calf tenderness, clubbing, pedal edema Neurological exam: PRESENT: alert, awake, oriented to person, oriented to place, oriented to time, oriented to situation, CN II-XII grossly intact. ABSENT: motor sensory deficit Psychiatric exam: PRESENT: appropriate affect, normal mood. ABSENT: homicidal ideation, suicidal ideation Results Laboratory Results: 09/29/18 05:53 09/29/18 06:53 09/29/18 09/29/18 05:53 06:53 WBC 6.3 RBC 3.75 Hgb 9.9 L Hct 30.3 L MCV 81 MCH 26.5 L MCHC 32.8 RDW 14.6 H Plt Count 276 Seg Neutrophils % 64.6 Lymphocytes % 26.0 Monocytes % 5.9 Eosinophils % 2.9 Basophils % 0.6 Absolute Neutrophils 4.1 Absolute Lymphocytes 1.6 Absolute Monocytes 0.4 Absolute Eosinophils 0.2 Absolute Basophils 0.0 Sodium 140.7 Potassium 4.7 Chloride 112 H Carbon Dioxide 17 L Anion Gap 12 BUN 29 H Creatinine 2.51 H Est GFR ( Amer) 25 L Est GFR (Non-Af Amer) 21 L Glucose 73 L Calcium 8.6 Magnesium 1.6 Total Bilirubin 0.3 AST 36 ALT 60 H Alkaline Phosphatase 109 Total Protein 6.0 L Albumin 3.5 09/24/18 09/25/18 14:46 10:00 Creatine Kinase 32 Troponin I < 0.012 Impressions: Head CT 09/24/18 14:43 IMPRESSION: NORMAL BRAIN CT WITHOUT CONTRAST. EVIDENCE OF ACUTE STROKE: NO. Renal Ultrasound 09/25/18 00:00 IMPRESSION: 1. Prominent echogenic renal pyramids bilaterally. 2. Increased renal cortical echogenicity. 3. Otherwise, unremarkable retroperitoneal ultrasound. Assessment & Plan - Diagnosis (1) Acute renal failure Is this a current diagnosis for this admission?: Yes Plan: 09/26/[id number]-hnhg-old female with history of lupus admitted for acute renal failure unfortunately baseline creatinine is not available. On admission cr eatinine is 4.3 improved to 3.3 today. Patient admitted is using Celebrex and ibuprofen at home for pain I strongly advised her not to take those medications. Plan is to recheck chemistry tomorrow. 09/27/[id number]-omot-old female with history of lupus admitted for acute on chronic renal failure. We do not have the baseline creatinine. On admission creatinine is 4.3 and it was improved to 3.29 today. Patient is on IV fluids normal saline at 100 cc/h. Patient says initially when she came in she feels metallic taste in the mouth now this metallic taste is going away. Plan is to continue the IV fluids to recheck the labs tomorrow. 09/28/[id number]-ghvd-old female with history of lupus admitted with acute on chronic renal failure we do not have the latest baseline creatinine on admission creatinine was 4.3 it was improved to 2.72 today. Plan is to continue IV fluid therapy during the hospital stay consultation with the Dr. Kline was done initially plan was to do the renal biopsy now it was on hold. plan is to continue the present management patient denies any metallic taste in the mouth today. 09/29/[id number]-cjmm-old female admitted with acute renal failure on admission creatinine is 4.3, improved to 2.51 today. She is getting IV fluids 100 cc/h plan is to recheck her creatinine level tomorrow. Dr. Morrison is hear with the patient will follow her recommendations. (2) Lupus Is this a current diagnosis for this admission?: No Plan: 09/26/2018-patient is given the history of lupus he has also family history of lupus. She follows with materials supervisor as an outpatient. Initially plan is here to do the renal biopsy here but it was postponed. 09/27/2018 patient is given the history of lupus she is follow-up with materials supervisor as an outpatient as per the information we got presently she does not have any active lupus not on any medications she is also given the history of family history of lupus. So far MARCIO is negative C4 is normal double-stranded DNA antibody is negative, other labs are pending. 09/28/2018-patient has history of lupus she is following with materials supervisor as an outpatient as per him patient is not having active lupus at this moment. So far the workup is negative. 09/29/2018-patient is given the history of lupus but all the serologies Came back negative for lupus. (3) Hyperkalemia Is this a current diagnosis for this admission?: Yes Plan: 09/26/2018-patient potassium level is 4.8 today hyperkalemia secondary to acute kidney failure is resolved. 09/27/2018 potassium level today is 4.7 hyperkalemia secondary to acute on chronic renal failure is resolved. 09/28/2018-today's potassium level is 4.7 hyper kalemia is resolved. Hyperkalemia most likely secondary to acute on chronic renal failure. 09/29/2018-potassium level today is 4.7 patient came in with hyperkalemia most likely secondary to acute on chronic kidney disease resolved. (4) Hypothyroidism Qualifiers: Hypothyroidism type: unspecified Qualified Code(s): E03.9 - Hypothyroidism, unspecified Is this a current diagnosis for this admission?: No Plan: 09/26/2018-TSH is 4.88 patient has history of hypothyroidism TSH levels are within therapeutic range. 09/27/2018-patient is on levothyroxine 25 mcg daily TSH is 4.88 plan is to continue the present management. 09/29/2018-patient has history of hypothyroidism on levothyroxine supplementation plan is to continue levothyroxine to 25 mg p.o. daily. (5) Obesity (BMI 30-39.9) Is this a current diagnosis for this admission?: Yes Plan: 09/28/2018-patient's BMI is more than 35 diet exercise weight loss was advised dietary consult is going to be requested. 09/29/2018-patient BMI is more than 35, diet exercise weight loss, lifestyle modifications are discussed with the patient. Dietary consult was requested. - Time Time Spent with patient: 15-24 minutes Medications reviewed and adjusted accordingly: Yes Anticipated discharge: Home
--- NOTE | 2018-09-29 10:58 | PDOC PROGRESS REPORT ---
Subjective Progress Note for:: 09/29/18 Subjective:: Patient is clinically stable and slowly improving every day. She reiterates that she has been having this metallic taste for months that she has told Dr. Shi about. She also mentioned that she was told that she has microscopic hematuria previously. She said in the past before coming to the hospital her urine does not look normal. She also complains of some twitching happening here in the hospital occasionally. Reason For Visit: ACUTE RENAL FAILURE Physical Exam Vital Signs: Temp Pulse Resp BP Pulse Ox 98.3 F 80 16 127/70 H 100 09/29/18 08:34 09/29/18 08:34 09/29/18 08:34 09/29/18 08:34 09/29/18 08:34 Intake & Output 09/28/18 09/29/18 09/30/18 06:59 06:59 06:59 Intake Total 2608 1000 Balance 2608 1000 Weight 132 kg Exam: General appearance: PRESENT: no acute distress, cooperative, well-developed, well-nourished Head exam: PRESENT: atraumatic, normocephalic Eye exam: PRESENT: conjunctiva pink, PERRLA. ABSENT: scleral icterus Neck exam: ABSENT: JVD Respiratory exam: PRESENT: Normal breath sounds. ABSENT: crackles, rales, rhonchi, unlabored, wheezes Cardiovascular exam: PRESENT: Regular rate rhythm -+S1, +S2. ABSENT: diastolic murmur, systolic murmur GI/Abdominal exam: PRESENT: normal bowel sounds, soft. ABSENT: guarding, mass, tenderness Extremities exam: ABSENT: No edema Neurological exam: PRESENT: alert, awake, oriented to person, place and time. Skin exam: PRESENT: dry, warm, Cardiovascular exam: PRESENT: +S1, +S2 GI/Abdominal exam: PRESENT: normal bowel sounds, soft. ABSENT: organomegaly, tenderness Results Laboratory Results: 09/29/18 05:53 09/29/18 06:53 09/29/18 09/29/18 05:53 06:53 WBC 6.3 RBC 3.75 Hgb 9.9 L Hct 30.3 L MCV 81 MCH 26.5 L MCHC 32.8 RDW 14.6 H Plt Count 276 Seg Neutrophils % 64.6 Lymphocytes % 26.0 Monocytes % 5.9 Eosinophils % 2.9 Basophils % 0.6 Absolute Neutrophils 4.1 Absolute Lymphocytes 1.6 Absolute Monocytes 0.4 Absolute Eosinophils 0.2 Absolute Basophils 0.0 Sodium 140.7 Potassium 4.7 Chloride 112 H Carbon Dioxide 17 L Anion Gap 12 BUN 29 H Creatinine 2.51 H Est GFR ( Amer) 25 L Est GFR (Non-Af Amer) 21 L Glucose 73 L Calcium 8.6 Magnesium 1.6 Total Bilirubin 0.3 AST 36 ALT 60 H Alkaline Phosphatase 109 Total Protein 6.0 L Albumin 3.5 09/24/18 09/25/18 14:46 10:00 Creatine Kinase 32 Troponin I < 0.012 Impressions: Head CT 09/24/18 14:43 IMPRESSION: NORMAL BRAIN CT WITHOUT CONTRAST. EVIDENCE OF ACUTE STROKE: NO. Renal Ultrasound 09/25/18 00:00 IMPRESSION: 1. Prominent echogenic renal pyramids bilaterally. 2. Increased renal cortical echogenicity. 3. Otherwise, unremarkable retroperitoneal ultrasound. Assessment & Plan - Diagnosis (1) Acute renal failure Is this a current diagnosis for this admission?: Yes Plan: Negative serologies for active lupus nephritis. Urinalysis is also bland without evidence of significant proteinuria nor microhematuria. Very possible that this is due to prerenal azotemia likely due to dehydration which is good response to IV fluid hydration currently. Kidney function continues to improve every day. No indication for kidney biopsy at this time. We will try to obtain records including labs and last progress notes from Dr. Shi office today. (2) Dehydration Is this a current diagnosis for this admission?: Yes Plan: Improving clinically. (3) Fibromyalgia Is this a current diagnosis for this admission?: Yes (4) Metabolic acidosis Is this a current diagnosis for this admission?: Yes Plan: On sodium bicarbonate orally. (5) Constipation Is this a current diagnosis for this admission?: Yes (6) Lupus Is this a current diagnosis for this admission?: No - Notes Notes: The patient's kidney function continues to improve I think the patient can be discharged home within 24-48 hours from nephrology standpoint. Once discharged patient may follow-up with either Dr. Kline or myself in 2-3 weeks with repeat CBC and BMP couple of days prior to appointment. - Time Time with patient: 15-25 minutes
[2018-09-30 05:29] LABS: ABSOLUTE EOSINOPHILS # (AUTO) 0.2 10^3/uL (0.0-0.6); ABSOLUTE LYMPHOCYTES (AUTO) 1.9 10^3/uL (0.5-4.7); ABSOLUTE MONOCYTES (AUTO) 0.4 10^3/uL (0.1-1.4); ABSOLUTE NEUT (AUTO) 4.1 10^3/uL (1.7-8.2); BASOPHILS % (AUTO) 0.5 % (0-2); HEMATOCRIT 31.7 % (36.0-47.0); HEMOGLOBIN 10.4 g/dL (12.0-15.5); LYMPHOCYTES % (AUTO) 28.3 % (13-45); MEAN CORPUSCULAR HEMOGLOBIN 26.5 pg (27.0-33.4); MEAN CORPUSCULAR HGB CONC 32.9 g/dL (32.0-36.0); MEAN CORPUSCULAR VOLUME 81 fl (80-97); PLATELET COUNT 275 10^3/uL (150-450); RED BLOOD COUNT 3.94 10^6/uL (3.72-5.28); RED CELL DISTRIBUTION WIDTH 14.4 % (11.5-14.0); SEGMENTED NEUTROPHILS % (AUTO) 62.2 % (42-78); TOTAL CELLS COUNTED % (AUTO) 100 %; WHITE BLOOD COUNT 6.7 10^3/uL (4.0-10.5)
[2018-09-30] MEDS: HEPARIN SOD (PORCINE) 5,000 UNIT/ML 1 ML SYRINGE SUBCUT SCH ×3 (05:40→22:03)
[2018-09-30] MEDS: PREGABALIN 75 MG CAPSULE PO SCH ×3 (05:40→22:03)
[2018-09-30 05:49] LABS: ALANINE AMINOTRANSFERASE 59 U/L (9-52); ALBUMIN 3.9 g/dL (3.5-5.0); ALKALINE PHOSPHATASE 128 U/L (38-126); ANION GAP 9 (5-19); ASPARTATE AMINO TRANSFERASE 34 U/L (14-36); BILIRUBIN,DIRECT 0.2 mg/dL (0.0-0.4); BILIRUBIN,TOTAL 0.2 mg/dL (0.2-1.3); BLOOD UREA NITROGEN 27 mg/dL (7-20); CALCIUM 9.1 mg/dL (8.4-10.2); CARBON DIOXIDE 20 mmol/L (22-30); CHLORIDE 111 mmol/L (98-107); GLUCOSE 83 mg/dL (75-110); POTASSIUM 4.7 mmol/L (3.6-5.0); SODIUM 140.2 mmol/L (137-145); TOTAL PROTEIN 7.1 g/dL (6.3-8.2)
[2018-09-30] MEDS: LEVOTHYROXINE SODIUM 0.025 MG TABLET PO SCH (07:57)
[2018-09-30] MEDS: NORMAL SALINE 1000 ML 1,000 ML IV PRN ×2 (07:57→19:56)
[2018-09-30] MEDS ORDERED: SENNOSIDES/DOCUSATE 8.6-50 MG 1 EACH TABLET PO PRN (10:20)
[2018-09-30] MEDS: NORTRIPTYLINE HCL 25 MG CAPSULE PO SCH (11:24)
[2018-09-30] MEDS: TOPIRAMATE 25 MG TABLET PO SCH ×2 (11:24→22:03)
[2018-09-30] MEDS: BUPROPION HCL 75 MG TABLET PO SCH ×2 (11:25→22:03)
[2018-09-30] MEDS: FERROUS SULFATE 325 MG TABLET PO SCH (11:25)
[2018-09-30] MEDS: SODIUM BICARBONATE 650 MG TABLET PO SCH ×2 (11:25→22:02)
[2018-09-30] MEDS: SERTRALINE HCL 50 MG TABLET PO SCH (11:25)
--- NOTE | 2018-09-30 15:59 | PDOC PROGRESS REPORT ---
Subjective Progress Note for:: 09/30/18 Subjective:: Reviewed chart and notes. This is a 43 year old female who reported a history of SLE-in remission who presented with weakness and fatigue. She was noted to be in acute renal failure with a creatinine of 4.3 She was evaluated by nephrology. There was initial suspicion for lupus nephritis but her SLE work up did come back negative. Renal biopsy was deferred. She was also started on IV fluids which significantly improve her renal functions. No acute event overnight. She says she continues to feel better. Her creatinine is still elevated but continues to trend down with IV fluids. She does tell me now that she was having some nausea, vomiting and poor intake prior to admission although she denies these symptoms on admission per H&P. Reason For Visit: ACUTE RENAL FAILURE Physical Exam Vital Signs: Temp Pulse Resp BP Pulse Ox 98.2 F 83 16 144/74 H 100 09/30/18 08:15 09/30/18 08:15 09/30/18 08:15 09/30/18 08:15 09/30/18 08:15 Intake & Output 09/29/18 09/30/18 10/01/18 06:59 06:59 06:59 Intake Total 2608 1550 Balance 2608 1550 Weight 291 lb 0.163 oz 304 lb 7.334 oz General appearance: PRESENT: no acute distress, well-developed, well-nourished Head exam: PRESENT: atraumatic, normocephalic Eye exam: PRESENT: conjunctiva pink, EOMI, PERRLA. ABSENT: scleral icterus Ear exam: PRESENT: normal external ear exam Mouth exam: PRESENT: moist, tongue midline Neck exam: ABSENT: carotid bruit, JVD, lymphadenopathy, thyromegaly Respiratory exam: PRESENT: clear to auscultation silvina. ABSENT: rales, rhonchi, wheezes Cardiovascular exam: PRESENT: RRR. ABSENT: diastolic murmur, rubs, systolic murmur Pulses: PRESENT: normal dorsalis pedis pul GI/Abdominal exam: PRESENT: normal bowel sounds, soft. ABSENT: distended, guarding, mass, organolmegaly, rebound, tenderness Rectal exam: PRESENT: deferred Neurological exam: PRESENT: alert, awake, oriented to person, oriented to place, oriented to time, oriented to situation, CN II-XII grossly intact. ABSENT: motor sensory deficit Results Laboratory Results: 09/30/18 05:06 09/30/18 05:06 09/30/18 09/30/18 05:06 05:06 WBC 6.7 RBC 3.94 Hgb 10.4 L Hct 31.7 L MCV 81 MCH 26.5 L MCHC 32.9 RDW 14.4 H Plt Count 275 Seg Neutrophils % 62.2 Lymphocytes % 28.3 Monocytes % 6.0 Eosinophils % 3.0 Basophils % 0.5 Absolute Neutrophils 4.1 Absolute Lymphocytes 1.9 Absolute Monocytes 0.4 Absolute Eosinophils 0.2 Absolute Basophils 0.0 Sodium 140.2 Potassium 4.7 Chloride 111 H Carbon Dioxide 20 L Anion Gap 9 BUN 27 H Creatinine 2.28 H Est GFR ( Amer) 28 L Est GFR (Non-Af Amer) 23 L Glucose 83 Calcium 9.1 Magnesium 1.5 L Total Bilirubin 0.2 AST 34 ALT 59 H Alkaline Phosphatase 128 H Total Protein 7.1 Albumin 3.9 09/24/18 09/25/18 14:46 10:00 Creatine Kinase 32 Troponin I < 0.012 Impressions: Head CT 09/24/18 14:43 IMPRESSION: NORMAL BRAIN CT WITHOUT CONTRAST. EVIDENCE OF ACUTE STROKE: NO. Renal Ultrasound 09/25/18 00:00 IMPRESSION: 1. Prominent echogenic renal pyramids bilaterally. 2. Increased renal cortical echogenicity. 3. Otherwise, unremarkable retroperitoneal ultrasound. Assessment & Plan - Diagnosis (1) Acute renal failure Is this a current diagnosis for this admission?: Yes Plan: Likely pre renal as her renal functions continue to significantly improve with IV fluids. Continue IV fluids today. Repeat BMP tomorrow. (2) Hyperkalemia Is this a current diagnosis for this admission?: Yes Plan: Resolved. Related to acute renal failure. (3) Metabolic acidosis Is this a current diagnosis for this admission?: Yes Plan: Secondary to ARF. Improving. On bicarb bid PO per nephrology. Will DC bicarb in the next 24-48 hrs when her acidosis is anticipated to resolve. - Time Time Spent with patient: 15-24 minutes
[2018-09-30] MEDS: ONDANSETRON HCL INJ/PF 4 MG/2 ML SDV IV PRN (19:56)
[2018-09-30] MEDS: OXYCODONE-ACETAMINOPHEN 5-325 MG TABLET PO PRN (20:03)
[2018-10-01] MEDS: PREGABALIN 75 MG CAPSULE PO SCH ×3 (05:37→22:00)
[2018-10-01] MEDS: HEPARIN SOD (PORCINE) 5,000 UNIT/ML 1 ML SYRINGE SUBCUT SCH ×3 (05:37→22:00)
[2018-10-01] MEDS: LEVOTHYROXINE SODIUM 0.025 MG TABLET PO SCH (07:34)
[2018-10-01 08:12] LABS: ANION GAP 9 (5-19); BLOOD UREA NITROGEN 26 mg/dL (7-20); CALCIUM 8.9 mg/dL (8.4-10.2); CARBON DIOXIDE 20 mmol/L (22-30); CHLORIDE 111 mmol/L (98-107); GLUCOSE 74 mg/dL (75-110); POTASSIUM 4.4 mmol/L (3.6-5.0); SODIUM 139.7 mmol/L (137-145)
[2018-10-01] MEDS: BUPROPION HCL 75 MG TABLET PO SCH ×2 (10:47→22:00)
[2018-10-01] MEDS: SERTRALINE HCL 50 MG TABLET PO SCH (10:47)
[2018-10-01] MEDS: SODIUM BICARBONATE 650 MG TABLET PO SCH (10:47)
[2018-10-01] MEDS: TOPIRAMATE 25 MG TABLET PO SCH ×2 (10:47→22:00)
[2018-10-01] MEDS: FERROUS SULFATE 325 MG TABLET PO SCH (10:48)
[2018-10-01] MEDS: NORTRIPTYLINE HCL 25 MG CAPSULE PO SCH (10:49)
[2018-10-01] MEDS: NORMAL SALINE 1000 ML 1,000 ML IV PRN (12:23)
[2018-10-01 16:04] LABS: ANION GAP 6 (5-19); BLOOD UREA NITROGEN 25 mg/dL (7-20); CALCIUM 9.2 mg/dL (8.4-10.2); CARBON DIOXIDE 22 mmol/L (22-30); CHLORIDE 111 mmol/L (98-107); GLUCOSE 75 mg/dL (75-110); POTASSIUM 4.8 mmol/L (3.6-5.0); SODIUM 139.4 mmol/L (137-145)
--- NOTE | 2018-10-01 16:53 | PDOC PROGRESS REPORT ---
Subjective Progress Note for:: 10/01/18 Subjective:: Reviewed chart and notes. This is a 43 year old female who reported a history of SLE-in remission who presented with weakness and fatigue. She was noted to be in acute renal failure with a creatinine of 4.3 She was evaluated by nephrology. There was initial suspicion for lupus nephritis but her SLE work up did come back negative. Renal biopsy was deferred. She was also started on IV fluids which significantly improve her renal functions. She says she continues to feel better. Her creatinine is still elevated but continues to trend down with IV fluids. She does tell me now that she was having some nausea, vomiting and poor intake prior to admission although she denies these symptoms on admission per H&P. She was also taking celebrex and Lasix. 10/02: No acute event overnight. Creatinine still elevated but continue to improve with IV fluids. Anticipate discharge in the next 24-48 hrs if Crea continue to trend down. Reason For Visit: ACUTE RENAL FAILURE Physical Exam Vital Signs: Temp Pulse Resp BP Pulse Ox 97.9 F 79 20 154/89 H 100 10/01/18 15:40 10/01/18 15:40 10/01/18 15:40 10/01/18 15:40 10/01/18 15:40 Intake & Output 09/30/18 10/01/18 10/02/18 06:59 06:59 06:59 Intake Total 1550 3383 1658 Balance 1550 3383 1658 Weight 304 lb 7.334 oz 313 lb 0.902 oz General appearance: PRESENT: no acute distress, well-developed, well-nourished Head exam: PRESENT: atraumatic, normocephalic Eye exam: PRESENT: conjunctiva pink, EOMI, PERRLA. ABSENT: scleral icterus Ear exam: PRESENT: normal external ear exam Mouth exam: PRESENT: moist, tongue midline Neck exam: ABSENT: carotid bruit, JVD, lymphadenopathy, thyromegaly Respiratory exam: PRESENT: clear to auscultation silvina. ABSENT: rales, rhonchi, wheezes Cardiovascular exam: PRESENT: RRR. ABSENT: diastolic murmur, rubs, systolic murmur Pulses: PRESENT: normal dorsalis pedis pul GI/Abdominal exam: PRESENT: normal bowel sounds, soft. ABSENT: distended, guarding, mass, organolmegaly, rebound, tenderness Rectal exam: PRESENT: deferred Extremities exam: PRESENT: full ROM. ABSENT: calf tenderness, clubbing, pedal edema Neurological exam: PRESENT: alert, awake, oriented to person, oriented to place, oriented to time, oriented to situation, CN II-XII grossly intact. ABSENT: motor sensory deficit Results Laboratory Results: 09/30/18 05:06 10/01/18 15:15 10/01/18 10/01/18 07:05 15:15 Sodium 139.7 139.4 Potassium 4.4 4.8 Chloride 111 H 111 H Carbon Dioxide 20 L 22 Anion Gap 9 6 BUN 26 H 25 H Creatinine 1.84 H 1.97 H Est GFR ( Amer) 36 L 34 L Est GFR (Non-Af Amer) 30 L 28 L Glucose 74 L 75 Calcium 8.9 9.2 09/24/18 09/25/18 14:46 10:00 Creatine Kinase 32 Troponin I < 0.012 Impressions: Head CT 09/24/18 14:43 IMPRESSION: NORMAL BRAIN CT WITHOUT CONTRAST. EVIDENCE OF ACUTE STROKE: NO. Renal Ultrasound 09/25/18 00:00 IMPRESSION: 1. Prominent echogenic renal pyramids bilaterally. 2. Increased renal cortical echogenicity. 3. Otherwise, unremarkable retroperitoneal ultrasound. Assessment & Plan - Diagnosis (1) Acute renal failure Is this a current diagnosis for this admission?: Yes Plan: Multifactorial likely pre renal from poor intake, vomiting in the setting of Lasix and Celebrex intake. Her renal functions continue to significantly improve with IV fluids. Continue IV fluids today. 10/01: Increase IV fluids to 125 cc/hr. Repeat BMP tomorrow. (2) Hyperkalemia Is this a current diagnosis for this admission?: Yes Plan: Resolved. Related to acute renal failure. (3) Metabolic acidosis Is this a current diagnosis for this admission?: Yes Plan: Secondary to ARF. Improving. On bicarb bid PO per nephrology. 10/01: Resolved. DC bicarb. - Time Time Spent with patient: 25-34 minutes
--- NOTE | 2018-10-01 21:32 | PDOC PROGRESS REPORT ---
Subjective Progress Note for:: 10/01/18 Subjective:: Patient is doing well and continues to do better. She does not have any new complaints. Reason For Visit: ACUTE RENAL FAILURE Physical Exam Vital Signs: Temp Pulse Resp BP Pulse Ox 97.9 F 79 20 154/89 H 100 10/01/18 15:40 10/01/18 15:40 10/01/18 15:40 10/01/18 15:40 10/01/18 15:40 Intake & Output 09/30/18 10/01/18 10/02/18 06:59 06:59 06:59 Intake Total 1550 3383 1658 Balance 1550 3383 1658 Weight 138.1 kg 142 kg Exam: General appearance: PRESENT: no acute distress, cooperative, well-developed, well-nourished Head exam: PRESENT: atraumatic, normocephalic Eye exam: PRESENT: conjunctiva pink, PERRLA. ABSENT: scleral icterus Neck exam: ABSENT: JVD Respiratory exam: PRESENT: Normal breath sounds. ABSENT: crackles, rales, rhonchi, unlabored, wheezes Cardiovascular exam: PRESENT: Regular rate rhythm -+S1, +S2. ABSENT: diastolic murmur, systolic murmur GI/Abdominal exam: PRESENT: normal bowel sounds, soft. ABSENT: guarding, mass, tenderness Extremities exam: ABSENT: No edema Neurological exam: PRESENT: alert, awake, oriented to person, place and time. Skin exam: PRESENT: dry, warm, Cardiovascular exam: PRESENT: +S1, +S2 GI/Abdominal exam: PRESENT: normal bowel sounds, soft. ABSENT: organomegaly, tenderness Results Laboratory Results: 09/30/18 05:06 10/01/18 15:15 10/01/18 10/01/18 07:05 15:15 Sodium 139.7 139.4 Potassium 4.4 4.8 Chloride 111 H 111 H Carbon Dioxide 20 L 22 Anion Gap 9 6 BUN 26 H 25 H Creatinine 1.84 H 1.97 H Est GFR ( Amer) 36 L 34 L Est GFR (Non-Af Amer) 30 L 28 L Glucose 74 L 75 Calcium 8.9 9.2 09/24/18 09/25/18 14:46 10:00 Creatine Kinase 32 Troponin I < 0.012 Impressions: Head CT 09/24/18 14:43 IMPRESSION: NORMAL BRAIN CT WITHOUT CONTRAST. EVIDENCE OF ACUTE STROKE: NO. Renal Ultrasound 09/25/18 00:00 IMPRESSION: 1. Prominent echogenic renal pyramids bilaterally. 2. Increased renal cortical echogenicity. 3. Otherwise, unremarkable retroperitoneal ultrasound. Assessment & Plan - Diagnosis (1) Acute renal failure Is this a current diagnosis for this admission?: Yes Plan: Negative serologies for active lupus nephritis. Urinalysis is also bland without evidence of significant proteinuria nor microhematuria. Very possible that this is due to prerenal azotemia likely due to dehydration with is good response to IV fluid hydration currently. Kidney function continues to improve every day. No indication for kidney biopsy at this time. Still no records from Dr. Shi office at this time. (2) Dehydration Is this a current diagnosis for this admission?: Yes Plan: Improving clinically. (3) Fibromyalgia Is this a current diagnosis for this admission?: Yes (4) Metabolic acidosis Is this a current diagnosis for this admission?: Yes Plan: Resolved. Discontinue sodium bicarbonate. (5) Constipation Is this a current diagnosis for this admission?: Yes (6) Lupus Is this a current diagnosis for this admission?: No - Time Time with patient: 15-25 minutes
[2018-10-02 01:10] VITALS: BP 118/73
[2018-10-02] MEDS: PREGABALIN 75 MG CAPSULE PO SCH (05:35)
[2018-10-02] MEDS: HEPARIN SOD (PORCINE) 5,000 UNIT/ML 1 ML SYRINGE SUBCUT SCH (05:35)
[2018-10-02] MEDS: NORMAL SALINE 1000 ML 1,000 ML IV PRN (05:36)
[2018-10-02 07:07] LABS: ANION GAP 9 (5-19); BLOOD UREA NITROGEN 23 mg/dL (7-20); CARBON DIOXIDE 18 mmol/L (22-30); CHLORIDE 113 mmol/L (98-107); GLUCOSE 77 mg/dL (75-110); SODIUM 140.4 mmol/L (137-145)
[2018-10-02] MEDS: LEVOTHYROXINE SODIUM 0.025 MG TABLET PO SCH (07:34)
[2018-10-02] MEDS: FERROUS SULFATE 325 MG TABLET PO SCH (09:14)
[2018-10-02] MEDS: BUPROPION HCL 75 MG TABLET PO SCH (09:14)
[2018-10-02] MEDS: SERTRALINE HCL 50 MG TABLET PO SCH (09:14)
[2018-10-02] MEDS: NORTRIPTYLINE HCL 25 MG CAPSULE PO SCH (09:15)
[2018-10-02] MEDS: TOPIRAMATE 25 MG TABLET PO SCH (09:15)
--- NOTE | 2018-10-02 15:47 | PDOC DISCHARGE SUMMARY ---
General - Admit/Disc Date/PCP Admission Date/Primary Care Provider: 09/24/18 18:23 RYAN JOHNSON MD Discharge Date: 10/02/18 - Discharge Diagnosis (1) Acute renal failure Is this a current diagnosis for this admission?: Yes (2) Hyperkalemia Is this a current diagnosis for this admission?: Yes (3) Metabolic acidosis Is this a current diagnosis for this admission?: Yes - Additional Information Discharge Diet: As Tolerated Discharge Activity: Activity As Tolerated Home Medications: Bupropion HCl [Bupropion Xl] 150 mg PO DAILY 09/24/18 Ferrous Gluconate 324 mg PO DAILY 09/24/18 Levothyroxine Sodium [Synthroid 0.025 mg Tablet] 25 mcg PO DAILY 09/24/18 Oxycodone HCl/Acetaminophen [Endocet 5-325 Tablet] 1 each PO Q6 09/24/18 Sertraline HCl [Zoloft] 100 mg PO DAILY 09/24/18 Sumatriptan Succinate [Imitrex 100 mg Tablet] 100 mg PO BIDP PRN 09/24/18 Topiramate 50 mg PO Q12 09/24/18 Acetaminophen [Tylenol 325 mg Tablet] 650 mg PO Q6HP PRN tablet 10/01/18 Pregabalin [Lyrica] 75 mg PO Q8 PRN #0 10/01/18 History of Present Illness History of Present Illness: Admitting hospitalist's H&P: RENETTA ARITA is a 43 year old female presents to the ER with a complaint of weakness and fatigue. States this is been going on for the past few days. States for the past few days she has been eating and drinking a little less than usual but not significantly. She denies any recent nausea vomiting constipation or diarrhea. She denies any fevers or chills. No one else in the house has been sick recently. She does have a history of lupus. She follows with a histology manager. She was last seen in July. Per the histology manager at that time she had a normal renal function. Hospital Course Hospital Course: This is a 43 year old female who reported a history of SLE-in remission who presented with weakness and fatigue. She was noted to be in acute renal failure with a creatinine of 4.3 She was evaluated by nephrology. There was initial suspicion for lupus nephritis but her SLE work up completely came back negative. Renal biopsy was deferred. She was also started on IV fluids which significantly improve her renal functions. She says she continues to feel better. Her creatinine is still elevated but continues to trend down with IV fluids. She does tell me now that she was having some nausea, vomiting and poor intake prior to admission although she denies these symptoms on admission per H&P. She was also taking celebrex and Lasix. Her creatinine did significantly improve with IV fluids and plateaued at 1.8- 1.9. Discussed with nephrology. This likely may be her new baseline. She will be discharged and will have a repeat BMP with nephro next week. Her axute renal failure was likely multifactorial from pre renal from poor intake and vomiting in the setting of Lasix and Celebrex intake. She was advised to stop taking Celebrex and hold Lasix (prn for pedal edema) until she repeats a BMP and follows up with nephro. Physical Exam Vital Signs: Temp Pulse Resp BP Pulse Ox 98.0 F 81 16 118/73 100 10/02/18 09:26 10/02/18 09:26 10/02/18 09:26 10/02/18 09:26 10/02/18 09:26 Intake & Output 10/01/18 10/02/18 10/03/18 06:59 06:59 06:59 Intake Total 3383 4458 Balance 3383 4458 Weight 313 lb 0.902 oz 313 lb 0.902 oz General appearance: PRESENT: no acute distress, well-developed, well-nourished Head exam: PRESENT: atraumatic, normocephalic Eye exam: PRESENT: conjunctiva pink, EOMI, PERRLA. ABSENT: scleral icterus Ear exam: PRESENT: normal external ear exam Mouth exam: PRESENT: moist, tongue midline Neck exam: ABSENT: carotid bruit, JVD, lymphadenopathy, thyromegaly Respiratory exam: PRESENT: clear to auscultation silvina. ABSENT: rales, rhonchi, wheezes Cardiovascular exam: PRESENT: RRR. ABSENT: diastolic murmur, rubs, systolic murmur Pulses: PRESENT: normal dorsalis pedis pul Vascular exam: PRESENT: normal capillary refill GI/Abdominal exam: PRESENT: normal bowel sounds, soft. ABSENT: distended, guarding, mass, organolmegaly, rebound, tenderness Rectal exam: PRESENT: deferred Neurological exam: PRESENT: alert, awake, oriented to person, oriented to place, oriented to time, oriented to situation, CN II-XII grossly intact. ABSENT: motor sensory deficit Results Laboratory Results: 09/30/18 05:06 10/02/18 05:13 10/01/18 10/02/18 15:15 05:13 Sodium 139.4 140.4 Potassium 4.8 5.0 Chloride 111 H 113 H Carbon Dioxide 22 18 L Anion Gap 6 9 BUN 25 H 23 H Creatinine 1.97 H 1.88 H Est GFR ( Amer) 34 L 36 L Est GFR (Non-Af Amer) 28 L 29 L Glucose 75 77 Calcium 9.2 9.0 09/24/18 09/25/18 14:46 10:00 Creatine Kinase 32 Troponin I < 0.012 Impressions: Head CT 09/24/18 14:43 IMPRESSION: NORMAL BRAIN CT WITHOUT CONTRAST. EVIDENCE OF ACUTE STROKE: NO. Renal Ultrasound 09/25/18 00:00 IMPRESSION: 1. Prominent echogenic renal pyramids bilaterally. 2. Increased renal cortical echogenicity. 3. Otherwise, unremarkable retroperitoneal ultrasound. Qualifiers - * PATIENT BEING DISCHARGED WITH ANY OF THE FOLLOWING DIAGNOSIS: No
== END 2018-10-02 11:07 | disposition home or self-care (01) | DRG 683 ==
LOC: ER 12:06 → EH 18:23 → 4N 21:30
PROVIDERS: ADMIT Emergency Medicine; ATTEND Emergency Medicine
DX: N17.9 Acute kidney failure, unspecified (principal); E87.2 Acidosis; M32.9 Systemic lupus erythematosus, unspecified; E87.5 Hyperkalemia; E86.0 Dehydration; E03.9 Hypothyroidism, unspecified; M19.90 Unspecified osteoarthritis, unspecified site; D64.9 Anemia, unspecified; M79.7 Fibromyalgia; K59.00 Constipation, unspecified; T50.905A Adverse effect of unspecified drugs, medicaments and biological substances, initial encounter; E66.9 Obesity, unspecified; Z68.39 Body mass index [BMI] 39.0-39.9, adult
CPT/HCPCS: 36415; 70450; 76775; 80048; 80053; 80074; 80307; 81001; 82550; 82962; 83516; 83520; 83735; 83970; 84100; 84132; 84439; 84443; 84481; 84484; 85025; 85610; 85652; 85730; 86038; 86160; 86225; 86235; 86256; 93005; 93010; 96360; 99285; J0610; J1644; J2405; J3490; J7030

== ENCOUNTER → 2018-10-07 | Outpatient (CLI) | payer MEDICARE, OTHER ==
[2018-10-07 17:59] LABS: ANION GAP 14 (5-19); BLOOD UREA NITROGEN 23 mg/dL (7-20); CALCIUM 10.7 mg/dL (8.4-10.2); CARBON DIOXIDE 20 mmol/L (22-30); CHLORIDE 104 mmol/L (98-107); GLUCOSE 71 mg/dL (75-110); POTASSIUM 4.5 mmol/L (3.6-5.0); SODIUM 138.2 mmol/L (137-145)
== END ==
LOC: OD 16:29
PROVIDERS: ATTEND Emergency Medicine
DX: N17.9 Acute kidney failure, unspecified (principal); E87.5 Hyperkalemia; E87.2 Acidosis
CPT/HCPCS: 36415; 80048

== ENCOUNTER → 2018-11-04 | Outpatient (CLI) | payer OTHER, MEDICARE ==
[2018-11-04 16:48] LABS: ABSOLUTE EOSINOPHILS # (AUTO) 0.1 10^3/uL (0.0-0.6); ABSOLUTE LYMPHOCYTES (AUTO) 1.6 10^3/uL (0.5-4.7); ABSOLUTE MONOCYTES (AUTO) 0.3 10^3/uL (0.1-1.4); ABSOLUTE NEUT (AUTO) 5.5 10^3/uL (1.7-8.2); BASOPHILS % (AUTO) 0.4 % (0-2); EOSINOPHILS % (AUTO) 1.7 % (0-6); HEMATOCRIT 34.4 % (36.0-47.0); HEMOGLOBIN 11.5 g/dL (12.0-15.5); MEAN CORPUSCULAR HEMOGLOBIN 26.7 pg (27.0-33.4); MEAN CORPUSCULAR HGB CONC 33.4 g/dL (32.0-36.0); MEAN CORPUSCULAR VOLUME 80 fl (80-97); MONOCYTES % (AUTO) 4.2 % (3-13); PLATELET COUNT 290 10^3/uL (150-450); RED BLOOD COUNT 4.31 10^6/uL (3.72-5.28); RED CELL DISTRIBUTION WIDTH 15.5 % (11.5-14.0); SEGMENTED NEUTROPHILS % (AUTO) 72.7 % (42-78); TOTAL CELLS COUNTED % (AUTO) 100 %; WHITE BLOOD COUNT 7.6 10^3/uL (4.0-10.5)
[2018-11-04 16:58] LABS: APPEARANCE,URINE CLEAR; BILIRUBIN,URINE NEGATIVE (NEGATIVE); COLOR,URINE YELLOW; GLUCOSE, URINE NEGATIVE (NEGATIVE); KETONES,URINE NEGATIVE (NEGATIVE); LEUKOCYTE ESTERASE,URINE NEGATIVE (NEGATIVE); NITRITE,URINE NEGATIVE (NEGATIVE); PROTEIN,URINE NEGATIVE (NEGATIVE); URINE SPECIFIC GRAVITY 1.006; UROBILINOGEN,URINE NEGATIVE mg/dL (<2.0)
[2018-11-04 17:15] LABS: ALBUMIN 4.4 g/dL (3.5-5.0); ANION GAP 12 (5-19); BLOOD UREA NITROGEN 13 mg/dL (7-20); CALCIUM 9.4 mg/dL (8.4-10.2); CARBON DIOXIDE 20 mmol/L (22-30); CHLORIDE 105 mmol/L (98-107); GLUCOSE 78 mg/dL (75-110); POTASSIUM 4.1 mmol/L (3.6-5.0); SODIUM 136.7 mmol/L (137-145)
[2018-11-06 13:37] LABS: CREATININE URINE 71.1 mg/dL (Not Estab.); MICROALBUMIN URINE 4.1 ug/mL (Not Estab.)
[2018-11-06 16:37] LABS: ALBUMIN 2 3.8 g/dL (2.9-4.4); ALPHA-2-GLOBULIN 2 0.8 g/dL (0.4-1.0); BETA GLOBULINS 1.2 g/dL (0.7-1.3); GAMMA GLOBULIN 1.7 g/dL (0.4-1.8); MONOCLONAL SPIKE Not Observed g/dL (Not Observ); PROTEIN TOTAL SERUM 7.8 g/dL (6.0-8.5)
== END ==
LOC: OD 16:18
PROVIDERS: ATTEND Internal Medicine Nephrology
DX: N17.9 Acute kidney failure, unspecified (principal); D64.9 Anemia, unspecified
CPT/HCPCS: 36415; 80069; 81001; 82043; 82306; 82570; 82728; 83540; 83550; 83970; 84165; 85025

== ENCOUNTER → 2018-12-31 | Outpatient (CLI) | payer MEDICARE, OTHER ==
[2018-12-31 17:28] LABS: ABSOLUTE EOSINOPHILS # (AUTO) 0.2 10^3/uL (0.0-0.6); ABSOLUTE LYMPHOCYTES (AUTO) 2.4 10^3/uL (0.5-4.7); ABSOLUTE MONOCYTES (AUTO) 0.4 10^3/uL (0.1-1.4); ABSOLUTE NEUT (AUTO) 5.7 10^3/uL (1.7-8.2); BASOPHILS % (AUTO) 0.5 % (0-2); EOSINOPHILS % (AUTO) 1.9 % (0-6); HEMATOCRIT 38.3 % (36.0-47.0); HEMOGLOBIN 12.5 g/dL (12.0-15.5); LYMPHOCYTES % (AUTO) 27.5 % (13-45); MEAN CORPUSCULAR HEMOGLOBIN 26.8 pg (27.0-33.4); MEAN CORPUSCULAR HGB CONC 32.7 g/dL (32.0-36.0); MEAN CORPUSCULAR VOLUME 82 fl (80-97); MONOCYTES % (AUTO) 4.3 % (3-13); PLATELET COUNT 320 10^3/uL (150-450); RED BLOOD COUNT 4.67 10^6/uL (3.72-5.28); RED CELL DISTRIBUTION WIDTH 14.2 % (11.5-14.0); SEGMENTED NEUTROPHILS % (AUTO) 65.8 % (42-78); TOTAL CELLS COUNTED % (AUTO) 100 %; WHITE BLOOD COUNT 8.7 10^3/uL (4.0-10.5)
[2018-12-31 17:53] LABS: ANION GAP 11 (5-19); BLOOD UREA NITROGEN 17 mg/dL (7-20); CALCIUM 9.7 mg/dL (8.4-10.2); CARBON DIOXIDE 23 mmol/L (22-30); CHLORIDE 106 mmol/L (98-107); GLUCOSE 77 mg/dL (75-110); IRON(TIBC) 37.7 ug/dL (37-170); POTASSIUM 3.8 mmol/L (3.6-5.0); SODIUM 140.1 mmol/L (137-145)
[2018-12-31 18:07] LABS: URINE CREATININE 234.4 mg/dL (15-278); URINE PROTEIN 8.5 mg/dL (<12)
[2019-01-02 12:37] LABS: CREATININE URINE 219.2 mg/dL (Not Estab.); MICROALBUMIN URINE 13.2 ug/mL (Not Estab.)
== END ==
LOC: OD 16:42
PROVIDERS: ATTEND Internal Medicine Nephrology
DX: N17.9 Acute kidney failure, unspecified (principal); N25.81 Secondary hyperparathyroidism of renal origin; E55.9 Vitamin D deficiency, unspecified; D50.9 Iron deficiency anemia, unspecified
CPT/HCPCS: 36415; 80048; 82043; 82306; 82570; 82728; 83540; 83550; 83970; 84156; 85025

== ENCOUNTER → 2019-03-21 | Outpatient (CLI) | payer OTHER, MEDICARE ==
[2019-03-21 18:33] LABS: T.VAGINALIS (WET MOUNT) NO TRICHOMONAS SEEN; WBCS (WET MOUNT) 2+ WBCS SEEN; YEAST (WET MOUNT) YEAST SEEN
[2019-03-21 18:34] LABS: BACTERIA (WET MOUNT) 4+ BACTERIA SEEN; EPITHELIALS (WET MOUNT) 3+ EPITHELIALS SEEN; RBCS (WET MOUNT) FEW RBCS SEEN
== END ==
LOC: LAB 18:25
PROVIDERS: ATTEND Nurse Practitioner Family
DX: N89.8 Other specified noninflammatory disorders of vagina (principal); Z68.42 Body mass index [BMI] 45.0-49.9, adult
CPT/HCPCS: 87210

== ENCOUNTER 2019-04-29 10:04 | Emergency (ER) | payer OTHER, MEDICARE ==
[2019-04-29 12:44] LABS: ABSOLUTE EOSINOPHILS # (AUTO) 0.1 10^3/uL (0.0-0.6); ABSOLUTE MONOCYTES (AUTO) 0.4 10^3/uL (0.1-1.4); ABSOLUTE NEUT (AUTO) 4.8 10^3/uL (1.7-8.2); BASOPHILS % (AUTO) 0.4 % (0-2); EOSINOPHILS % (AUTO) 1.1 % (0-6); HEMATOCRIT 38.3 % (36.0-47.0); HEMOGLOBIN 12.5 g/dL (12.0-15.5); MEAN CORPUSCULAR HEMOGLOBIN 26.5 pg (27.0-33.4); MEAN CORPUSCULAR HGB CONC 32.7 g/dL (32.0-36.0); MEAN CORPUSCULAR VOLUME 81 fl (80-97); MONOCYTES % (AUTO) 5.5 % (3-13); PLATELET COUNT 349 10^3/uL (150-450); RED BLOOD COUNT 4.72 10^6/uL (3.72-5.28); RED CELL DISTRIBUTION WIDTH 15.9 % (11.5-14.0); TOTAL CELLS COUNTED % (AUTO) 100 %; WHITE BLOOD COUNT 7.2 10^3/uL (4.0-10.5)
[2019-04-29 13:16] LABS: ALBUMIN 4.6 g/dL (3.5-5.0); ALKALINE PHOSPHATASE 140 U/L (38-126); ANION GAP 11 (5-19); ASPARTATE AMINO TRANSFERASE 21 U/L (14-36); BILIRUBIN,DIRECT 0.1 mg/dL (0.0-0.4); BILIRUBIN,TOTAL 0.4 mg/dL (0.2-1.3); BLOOD UREA NITROGEN 13 mg/dL (7-20); CALCIUM 9.5 mg/dL (8.4-10.2); CARBON DIOXIDE 21 mmol/L (22-30); CHLORIDE 109 mmol/L (98-107); GLUCOSE 90 mg/dL (75-110); TOTAL PROTEIN 8.6 g/dL (6.3-8.2)
[2019-04-29 14:11] LABS: APPEARANCE,URINE SLIGHTLY-CLOUDY; BILIRUBIN,URINE NEGATIVE (NEGATIVE); COLOR,URINE YELLOW; GLUCOSE, URINE NEGATIVE (NEGATIVE); KETONES,URINE NEGATIVE (NEGATIVE); LEUKOCYTE ESTERASE,URINE NEGATIVE (NEGATIVE); NITRITE,URINE NEGATIVE (NEGATIVE); PROTEIN,URINE NEGATIVE (NEGATIVE); URINE SPECIFIC GRAVITY 1.021
--- NOTE | 2019-04-29 15:10 | ER Document Report ---
ED General - General Chief Complaint: Dizziness Stated Complaint: LIGHT HEADED,CAN'T THINK STRAIGHT Time Seen by Provider: 04/29/19 13:01 Primary Care Provider: BAILEE WEST MD [Primary Care Provider] - Follow up as needed TRAVEL OUTSIDE OF THE [place] IN LAST 30 DAYS: No COUNTRY TRAVELED TO/FROM: DR Markus HARDIN Notes: Patient is a 43-year-old female who presents the emergency department for evaluation of dizziness. She states is been ongoing for the last 48 hours. It seems to be relatively constant. She denies any vertiginous symptoms, no hearing loss, no tinnitus. She states she just feels "foggy." And lightheaded. Nothing seems to make it worse, she states that lying down flat makes it better. She states that the last time she felt this way she was in renal failure, she was prime really concerned about that. She is still urinating. No significant changes in her medications recently. She states that intermittently she feels like her vision is blurred, but is not blurred at this time. - Related Data Allergies/Adverse Reactions: No Known Allergies Allergy (Verified 04/29/19 10:15) Home Medications: Hydroxyzine 25 mg 3 times daily as needed, Topamax 50 mg in the morning, 100 mg in the evening, Zofran 4 mg twice daily as needed for nausea, Imitrex as needed for migraine, Synthroid daily, unknown dose, omeprazole 20 mg daily, Claritin 10 mg daily, nortriptyline 2 capsules at bedtime, unknown dosage, Zoloft 100 mg daily, ferrous gluconate daily, Lasix 20 mg daily albuterol 90 mcg as needed, triamcinolone as needed for rash Past Medical History - General Information source: Patient - Social History Smoking Status: Never Smoker Chew tobacco use (# tins/day): No Frequency of alcohol use: Occasional Family History: Reviewed & Not Pertinent Patient has suicidal ideation: No Patient has homicidal ideation: No - Past Medical History Cardiac Medical History: Denies: Hx Atrial Fibrillation, Hx Congestive Heart Failure, Hx Hypertension Pulmonary Medical History: Denies: Hx Asthma, Hx Sleep Apnea Neurological Medical History: Reports: Hx Migraine. Denies: Hx Seizures Endocrine Medical History: Reports: Hx Hypothyroidism. Denies: Hx Diabetes Mellitus Type 1 Renal/ Medical History: Denies: Hx Peritoneal Dialysis GI Medical History: Denies: Hx Cirrhosis, Hx Gastroesophageal Reflux Disease, Hx Hepatitis Musculoskeletal Medical History: Reports Hx Arthritis - fibromyalgia, Reports Hx Fibromyalgia Psychiatric Medical History: Reports: Hx Anxiety, Hx Depression Infectious Medical History: Denies: Hx Hepatitis, Hx HIV Past Surgical History: Reports: Hx Orthopedic Surgery - left knee, L shoulder, Hx Tonsillectomy Review of Systems - Review of Systems Constitutional: No symptoms reported EENT: No symptoms reported Cardiovascular: No symptoms reported Respiratory: No symptoms reported Gastrointestinal: No symptoms reported Genitourinary: No symptoms reported Musculoskeletal: No symptoms reported Skin: No symptoms reported Neurological/Psychological: See HPI Physical Exam - Vital signs Vitals: Temp Pulse Resp BP Pulse Ox 97.7 F 80 18 132/62 H 100 04/29/19 10:10 04/29/19 10:10 04/29/19 10:10 04/29/19 10:10 04/29/19 10:10 - Notes Notes: Vital signs reviewed, please refer to chart. Head is normocephalic, atraumatic. Pupils equal round, reactive to light. TMs are pearly mccrary with good light reflex. Neck is supple without meningismus. Heart is regular rate and rhythm. Lungs are clear to auscultation bilaterally. Abdomen is soft, nontender, normoactive bowel sounds throughout. Extremities without cyanosis, clubbing. Posterior calves are nontender. Peripheral pulses are equal. Skin is warm and dry. Patient is awake, alert, oriented x3. Cranial nerves II - XII are grossly intact without focal neurological deficits. Strength is plus 5 out of 5 bilateral upper and lower extremities. Sensation is intact. Reflexes symmetrical. Intact [id number], rapid alternating movements, [id number]. Course - Re-evaluation Re-evalutation: 04/29/19 15:09 Patient presents emergency department for evaluation. Laboratory investigations were obtained. Patient has a normal neurological exam. Her renal function is normal as well. I do not have a clear etiology for this patient's dizziness at this time, she believes it may be due to her fibromyalgia. At this point I will get and have the patient follow-up with her primary care physician next week. If she develops worsening symptoms she is to return. - Vital Signs Vital signs: Temp Pulse Resp BP Pulse Ox 97.7 F 80 18 132/62 H 100 04/29/19 10:10 04/29/19 10:10 04/29/19 10:10 04/29/19 10:10 04/29/19 10:10 - Laboratory Result Diagrams: 04/29/19 11:03 04/29/19 11:03 Laboratory results interpreted by me: 04/29/19 04/29/19 04/29/19 11:03 11:03 13:20 MCH 26.5 L RDW 15.9 H Chloride 109 H Carbon Dioxide 21 L Alkaline Phosphatase 140 H Total Protein 8.6 H Urine Blood LARGE H Urine Urobilinogen 4.0 H Discharge - Discharge Clinical Impression: Dizziness Condition: Stable Disposition: HOME, SELF-CARE Instructions: Dizziness ([facility]) Additional Instructions: No clear cause was found for your dizziness today. Continue your home medications as prescribed. Follow-up with your doctor this week. Return to the emergency department with worsening or new concerning symptoms of any sort. Referrals: BAILEE WEST MD [Primary Care Provider] - Follow up as needed
[2019-04-29 15:20] VITALS: BP 116/62
== END 2019-04-29 15:18 | disposition home or self-care (01) ==
LOC: ER 10:04
DX: R42 Dizziness and giddiness (principal); E03.9 Hypothyroidism, unspecified
CPT/HCPCS: 36415; 80053; 81001; 85025; 99284

== ENCOUNTER 2019-08-04 05:43 | Day surgery (SDC) | payer MEDICARE, OTHER ==
[2019-08-03 11:12] LABS: HEMATOCRIT 37.7 % (36.0-47.0); HEMOGLOBIN 12.6 g/dL (12.0-15.5); MEAN CORPUSCULAR HGB CONC 33.3 g/dL (32.0-36.0); MEAN CORPUSCULAR VOLUME 81 fl (80-97); PLATELET COUNT 261 10^3/uL (150-450); RED BLOOD COUNT 4.64 10^6/uL (3.72-5.28); RED CELL DISTRIBUTION WIDTH 14.8 % (11.5-14.0); WHITE BLOOD COUNT 7.2 10^3/uL (4.0-10.5)
[2019-08-03 11:32] LABS: APPEARANCE,URINE SLIGHTLY-CLOUDY; BILIRUBIN,URINE NEGATIVE (NEGATIVE); CALCIUM OXALATE CRYSTALS,URINE MODERATE /HPF; COLOR,URINE YELLOW; GLUCOSE, URINE NEGATIVE (NEGATIVE); KETONES,URINE NEGATIVE (NEGATIVE); LEUKOCYTE ESTERASE,URINE NEGATIVE (NEGATIVE); NITRITE,URINE NEGATIVE (NEGATIVE); PROTEIN,URINE 30 mg/dL (NEGATIVE); URINE SPECIFIC GRAVITY 1.026
[2019-08-03 11:34] LABS: ALBUMIN 4.4 g/dL (3.5-5.0); ALKALINE PHOSPHATASE 134 U/L (38-126); ANION GAP 12 (5-19); ASPARTATE AMINO TRANSFERASE 20 U/L (14-36); BILIRUBIN,DIRECT 0.2 mg/dL (0.0-0.4); BILIRUBIN,TOTAL 0.3 mg/dL (0.2-1.3); BLOOD UREA NITROGEN 15 mg/dL (7-20); CALCIUM 9.6 mg/dL (8.4-10.2); CARBON DIOXIDE 22 mmol/L (22-30); CHLORIDE 106 mmol/L (98-107); GLUCOSE 76 mg/dL (75-110); POTASSIUM 4.4 mmol/L (3.6-5.0); TOTAL PROTEIN 8.2 g/dL (6.3-8.2)
[~2019-08-04 05:43] MED LIST: CEFAZOLIN SODIUM 2 GM in DEXTROSE 5%-WATER 100 ML IV PRN; LIDOCAINE 0.5% INJ-PF (5 MG/ML) 50 ML SDV SUBCUT PRN
[2019-08-04] MEDS ORDERED: MIDAZOLAM 2 MG/2 ML INJ ONE (06:40)
[2019-08-04] MEDS ORDERED: FENTANYL CITRATE INJ/PF 250 MCG/5 ML AMPULE ONE (06:40)
[2019-08-04] MEDS ORDERED: PROPOFOL INJ 200 MG/20 ML VIAL IV ONE (06:41)
[2019-08-04] MEDS ORDERED: HYDROMORPHONE HCL INJ/PF 2 MG/ML AMPULE ONE (06:41)
[2019-08-04] MEDS ORDERED: LIDOCAINE 2% INJ (20 MG/ML) 20 ML MDV ONE (06:42)
[2019-08-04] MEDS ORDERED: MEPERIDINE HCL/PF INJ 25 MG/1 ML DISP.SYRIN IV PRN (09:59)
[2019-08-04] MEDS ORDERED: FENTANYL CITRATE INJ/PF 100 MCG/2 ML AMPUL IV PRN ×3 (09:59)
[2019-08-04] MEDS ORDERED: OXYCODONE-ACETAMINOPHEN 5-325 MG TABLET PO PRN ×3 (09:59→10:22)
[2019-08-04] MEDS ORDERED: MORPHINE SULFATE 10 MG/ML INJ IV PRN (09:59)
[2019-08-04] MEDS ORDERED: DIPHENHYDRAMINE HCL 50 MG/ML VIAL IV PRN (09:59)
[2019-08-04] MEDS ORDERED: PROMETHAZINE HCL INJ 25 MG/1 ML VIAL IV PRN ×3 (09:59→10:22)
[2019-08-04] MEDS ORDERED: ONDANSETRON HCL INJ/PF 4 MG/2 ML SDV IV PRN (09:59)
[2019-08-04] MEDS ORDERED: SIMETHICONE 80 MG TAB.CHEW PO PRN (10:22)
[2019-08-04] MEDS ORDERED: RINGERS SOLUTION,LACTATED 1,000 ML IV PRN (10:22)
[2019-08-04] MEDS ORDERED: ACETAMINOPHEN 1,000 MG/100 ML RTUPB IV PRN (10:22)
[2019-08-04] MEDS ORDERED: ACETAMINOPHEN 325 MG TABLET PO PRN (10:22)
--- NOTE | 2019-08-04 10:44 | Operative Report ---
Operative Report DATE OF SURGERY: 08/04/19 PREOPERATIVE DIAGNOSIS: Heavy menses and uterine pain POSTOPERATIVE DIAGNOSIS: Same OPERATION: Robotic hysterectomy bilateral salpingectomy SURGEON: DONNA KAPOOR ANESTHESIA: GA TISSUE REMOVED OR ALTERED: Uterus fallopian tubes and cervix COMPLICATIONS: None ESTIMATED BLOOD LOSS: 50 cc INTRAOPERATIVE FINDINGS: The patient had a right corpus luteum cyst. Also of note no Essure coil was seen perforating the tube. PROCEDURE: Patient was taken the OR and placed in supine position. General anesthesia was induced. She was placed in dorsolithotomy position using Nicolás stirrups. Her abdomen perineum and vagina were prepared and draped in sterile fashion. Humphrey catheter was placed for drainage of the bladder. A bivalve speculum was placed in the anterior lip of the cervix was grasped with a tenaculum. Uterus sounded to 8 cm. The cervix was gently dilated. A suture was placed at the anterior cervix as well. The [employer] uterine manipulator was then placed and balloon inflated. Next an incision was made the umbilicus and the natural umbilical defect was identified and dilated allowing a blunt port to be placed. Laparoscopy confirmed appropriate placement. The lateral ports were placed under laparoscopic visualization in the right lower quadrant port for insufflation was placed as well. The robot was brought to the patient and docked. We had difficulty docking the left arm and the left port was replaced under laparoscopic visualization. Once again the patient was placed in steep Trendelenburg and the robot was docked. View of the pelvis was good. I could see no evidence of a Essure coil perforating the fallopian tubes. Each fallopian tube was removed by cauterizing with bipolar and then cutting with monopolar patrick at the mesosalpinx. Each fallopian tube was then passed off the field. The ovaries appeared normal with the right ovary having a corpus luteum cyst. And these were left in place. The ureters could be seen deep in the pelvis away from the operative field. Next staying directly next to the uterus the utero-ovarian pedicle was cauterized with bipolar and cut with monopolar patrick bilaterally. The round ligament bilaterally was also cauterized with bipolar patrick and cut with monopolar patrick staying next to the uterus. The broad ligament also was cauterized with bipolar patrick and cut with monopolar patrick staying directly next to the uterus. A bladder flap was made with the monopolar patrick. The uterine uterine arteries were identified and cauterized with bipolar and then cut with monopolar patrick. This was also done staying directly next to the uterus and elevating the cervix into the pelvis using the uterine manipulator. The cardinal ligaments were then cauterized with bipolar cautery and cut with monopolar patrick. Upon reaching the V care cup a circumferential incision was made on the V care cup excising the cervix free from the vaginal cuff. The uterus was removed through the vagina. The vaginal cuff was then closed with a 2-0 V lock suture. The cuff was closed from right to left. The first suture incorporated the anterior vaginal mucosa lateral vaginal sidewall posterior vaginal mucosa. A running suture was then performed across the cuff closing anterior vaginal mucosa to posterior vaginal mucosa and upon reaching the left side of the incision anterior vaginal mucosa lateral vaginal sidewall posterior vaginal mucosa was included. Several sutures were taken medially and the stitch was cut and the needle passed off the field. The pelvis was irrigated and suctioned free of fluid. The pedicles were inspected for bleeding and no bleeding was noted at the ovarian or uterine pedicles. The robot was undocked from the patient. Under laparoscopy the patient was taken out of the steep Trendelenburg and the pedicles were once again inspected and adequate hemostasis was assured. The ports were removed under laparoscopic visualization and the gas was allowed to escape from the abdomen. The umbilical port and scope were removed at the same time. The fascia at the umbilicus was closed with a 2-0 Vicryl stitch and the skin at all 5 sites was closed with 4-0 undyed Vicryl stitch. The patient was placed back in supine position extubated in the OR and taken recovery room in stable condition.
[2019-08-04] MEDS: MEPERIDINE HCL/PF INJ 25 MG/1 ML DISP.SYRIN ONE ×2 (10:45→10:55)
[2019-08-04] MEDS ORDERED: ACETAMINOPHEN 1,000 MG/100 ML RTUPB IV ONE (10:45)
[2019-08-04] MEDS: FENTANYL CITRATE INJ/PF 100 MCG/2 ML AMPUL ONE ×2 (11:04→11:10)
[2019-08-04] MEDS: OXYCODONE-ACETAMINOPHEN 5-325 MG TABLET PO PRN ×2 (12:44→20:03)
[2019-08-04] MEDS ORDERED: ONDANSETRON HCL INJ/PF 4 MG/2 ML SDV ONE (14:01)
[2019-08-04] MEDS ORDERED: ROCURONIUM BROMIDE INJ 50 MG/5 ML VIAL IV ONE (14:01)
[2019-08-04] MEDS ORDERED: KETOROLAC TROMETHAMINE 60 MG/2 ML SDV ONE (14:01)
[2019-08-04] MEDS ORDERED: GLYCOPYRROLATE 1 MG/5 ML VIAL ONE (14:01)
[2019-08-04] MEDS ORDERED: DEXAMETHASONE SOD PHOSPHATE INJ 4 MG/1 ML VIAL ONE (14:01)
[2019-08-04] MEDS ORDERED: VECURONIUM BROMIDE INJ 10 MG VIAL IV ONE (14:01)
[2019-08-04] MEDS ORDERED: NEOSTIGMINE METHYLSULFATE 10 MG/10 ML VIAL ONE (14:01)
[2019-08-04] MEDS: LACTATED RINGERS 1000 ML IV PRN ×2 (14:17→23:11)
[2019-08-04] MEDS: HYDROMORPHONE HCL INJ/PF 2 MG/ML AMPULE IV PRN ×2 (14:27→21:35)
[2019-08-04 15:07] LABS: HEMATOCRIT 36.2 % (36.0-47.0); HEMOGLOBIN 12.2 g/dL (12.0-15.5); MEAN CORPUSCULAR HEMOGLOBIN 27.4 pg (27.0-33.4); MEAN CORPUSCULAR HGB CONC 33.6 g/dL (32.0-36.0); MEAN CORPUSCULAR VOLUME 82 fl (80-97); PLATELET COUNT 241 10^3/uL (150-450); RED BLOOD COUNT 4.43 10^6/uL (3.72-5.28); RED CELL DISTRIBUTION WIDTH 14.4 % (11.5-14.0); WHITE BLOOD COUNT 9.6 10^3/uL (4.0-10.5)
[2019-08-04 15:46] LABS: ANION GAP 12 (5-19); BLOOD UREA NITROGEN 10 mg/dL (7-20); CALCIUM 9.1 mg/dL (8.4-10.2); CARBON DIOXIDE 17 mmol/L (22-30); CHLORIDE 109 mmol/L (98-107); GLUCOSE 121 mg/dL (75-110)
[2019-08-04 15:49] LABS: ABSOLUTE MONOCYTES # (MANUAL) 0.3 10^3/uL (0.1-1.4); ANISOCYTOSIS SLIGHT; BASOPHILS % (MANUAL) 0 % (0-2); EOSINOPHILS % (MANUAL) 0 % (0-6); HYPOCHROMASIA SLIGHT; LYMPHOCYTES % (MANUAL) 10 % (13-45); MONOCYTES % (MANUAL) 3 % (3-13); PLATELET COMMENT ADEQUATE; SEGMENTED NEUTROPHILS % (MAN) 87 % (42-78); TOTAL CELLS COUNTED 100
[2019-08-04] MEDS: KETOROLAC TROMETHAMINE INJ/PF 30 MG/1 ML SDV IV SCH (18:53)
[2019-08-04] MEDS: DOCUSATE SODIUM 100 MG CAPSULE PO SCH (18:53)
[2019-08-04] MEDS ORDERED: METOCLOPRAMIDE HCL 10 MG TABLET PO PRN (20:11)
[2019-08-04] MEDS ORDERED: PREGABALIN 75 MG PO PRN (20:11)
[2019-08-04] MEDS ORDERED: SUMATRIPTAN SUCCINATE 100 MG TABLET PO PRN (20:11)
[2019-08-04] MEDS ORDERED: TIZANIDINE HCL 4 MG TABLET PO PRN (20:11)
[2019-08-04] MEDS ORDERED: FAMOTIDINE 20 MG TABLET ONE (22:00)
[2019-08-04] MEDS: FAMOTIDINE 20 MG TABLET PO SCH (22:01)
[2019-08-04] MEDS: BUPROPION HCL 75 MG TABLET PO SCH (22:01)
[2019-08-04] MEDS: TOPIRAMATE 25 MG TABLET PO SCH (22:01)
[2019-08-05] MEDS: KETOROLAC TROMETHAMINE INJ/PF 30 MG/1 ML SDV IV SCH ×2 (02:54→10:04)
[2019-08-05] MEDS: OXYCODONE-ACETAMINOPHEN 5-325 MG TABLET PO PRN ×2 (02:57→06:57)
[2019-08-05] MEDS ORDERED: LEVOTHYROXINE SODIUM 0.025 MG TABLET PO SCH (06:00)
[2019-08-05 06:42] LABS: HEMATOCRIT 33.6 % (36.0-47.0); MEAN CORPUSCULAR HEMOGLOBIN 26.6 pg (27.0-33.4); MEAN CORPUSCULAR HGB CONC 32.7 g/dL (32.0-36.0); MEAN CORPUSCULAR VOLUME 81 fl (80-97); PLATELET COUNT 237 10^3/uL (150-450); RED BLOOD COUNT 4.13 10^6/uL (3.72-5.28); RED CELL DISTRIBUTION WIDTH 14.8 % (11.5-14.0); WHITE BLOOD COUNT 14.7 10^3/uL (4.0-10.5)
[2019-08-05] MEDS ORDERED: (PENDING PHARMACY ID) (Bupropion Hcl [Bupropion Xl] 150 MG) PO SCH (10:00)
[2019-08-05] MEDS ORDERED: (PENDING PHARMACY ID) (Ferrous Gluconate [Ferrous Gluconate] 324 MG) PO SCH (10:00)
[2019-08-05] MEDS ORDERED: RANITIDINE HCL 75 MG PO SCH (10:00)
[2019-08-05] MEDS ORDERED: SERTRALINE HCL 50 MG TABLET PO SCH (10:00)
[2019-08-05] MEDS: BUPROPION HCL 75 MG TABLET PO SCH (10:05)
[2019-08-05] MEDS: TOPIRAMATE 25 MG TABLET PO SCH (10:05)
[2019-08-05] MEDS: DOCUSATE SODIUM 100 MG CAPSULE PO SCH (10:05)
[2019-08-05] MEDS ORDERED: PREGABALIN 75 MG CAPSULE PO PRN (10:45)
[2019-08-05] MEDS: FAMOTIDINE 20 MG TABLET PO SCH (11:47)
[2019-08-05] MEDS ORDERED: IBUPROFEN 800 MG TABLET PO SCH (12:00)
[2019-08-05 12:35] VITALS: BP 124/62
== END 2019-08-05 15:30 | disposition home or self-care (01) ==
LOC: OROUT 05:43 → 2N 12:14 → OROUT 08-05 15:30
PROVIDERS: ATTEND Obstetrics & Gynecology
DX: N92.0 Excessive and frequent menstruation with regular cycle (principal); N83.11 Corpus luteum cyst of right ovary; D25.1 Intramural leiomyoma of uterus; Z79.01 Long term (current) use of anticoagulants; E07.9 Disorder of thyroid, unspecified; J45.909 Unspecified asthma, uncomplicated
CPT/HCPCS: 58571; S2900; 36415; 80048; 80053; 81001; 81025; 840; 85025; 85027; 86850; 86900; 86901; 88307; 94799; J0131; J0690; J1100; J1170; J1885; J2175; J2250; J2405; J2550; J2704; J2710; J3010; J3490; J7060; J7120

== ENCOUNTER → 2019-10-02 | Outpatient (CLI) | payer OTHER, MEDICARE ==
[2019-10-02 14:00] LABS: ABSOLUTE EOSINOPHILS # (AUTO) 0.1 10^3/uL (0.0-0.6); ABSOLUTE LYMPHOCYTES (AUTO) 2.4 10^3/uL (0.5-4.7); ABSOLUTE MONOCYTES (AUTO) 0.4 10^3/uL (0.1-1.4); ABSOLUTE NEUT (AUTO) 3.4 10^3/uL (1.7-8.2); BASOPHILS % (AUTO) 0.5 % (0-2); EOSINOPHILS % (AUTO) 1.4 % (0-6); HEMATOCRIT 38.1 % (36.0-47.0); LYMPHOCYTES % (AUTO) 38.8 % (13-45); MEAN CORPUSCULAR HEMOGLOBIN 27.7 pg (27.0-33.4); MEAN CORPUSCULAR HGB CONC 34.1 g/dL (32.0-36.0); MEAN CORPUSCULAR VOLUME 81 fl (80-97); MONOCYTES % (AUTO) 5.8 % (3-13); PLATELET COUNT 279 10^3/uL (150-450); RED BLOOD COUNT 4.68 10^6/uL (3.72-5.28); RED CELL DISTRIBUTION WIDTH 14.8 % (11.5-14.0); SEGMENTED NEUTROPHILS % (AUTO) 53.5 % (42-78); TOTAL CELLS COUNTED % (AUTO) 100 %; WHITE BLOOD COUNT 6.3 10^3/uL (4.0-10.5)
[2019-10-02 14:23] LABS: ANION GAP 14 (5-19); BLOOD UREA NITROGEN 15 mg/dL (7-20); CALCIUM 9.7 mg/dL (8.4-10.2); CARBON DIOXIDE 19 mmol/L (22-30); CHLORIDE 108 mmol/L (98-107); GLUCOSE 80 mg/dL (75-110); IRON(TIBC) 53.6 ug/dL (37-170); POTASSIUM 4.6 mmol/L (3.6-5.0)
== END ==
LOC: OD 13:27
PROVIDERS: ATTEND Internal Medicine Nephrology
DX: N18.2 Chronic kidney disease, stage 2 (mild) (principal); D50.9 Iron deficiency anemia, unspecified; E21.1 Secondary hyperparathyroidism, not elsewhere classified; E55.9 Vitamin D deficiency, unspecified
CPT/HCPCS: 36415; 80048; 82306; 82728; 83540; 83550; 83970; 85025

== ENCOUNTER 2020-01-24 14:06 | Emergency (ER) | payer MEDICARE ==
[2020-01-24 16:11] VITALS: BP 118/75
--- NOTE | 2020-01-24 16:25 | ER Document Report ---
ED Respiratory Problem - General Chief Complaint: Cough Stated Complaint: COUGH Time Seen by Provider: 01/24/20 15:55 Primary Care Provider: MAIKOL WALKER MD [Primary Care Provider] - Follow up as needed Notes: CHIEF COMPLAINT: Sore throat and cough HPI: 44-year-old female presenting with nasal congestion over the last 5 days with sore throat and cough. No shortness of breath no chest pain no fever has not taken any medications for her symptoms ROS: See HPI - all other systems were reviewed and are otherwise negative Constitutional: no fever Eyes: no drainage, no blurred vision ENT: + runny nose, positive sore throat Cardiovascular: no chest pain Resp: no SOB, positive cough GI: no vomiting, no diarrhea, no abdominal pain : no dysuria Integumentary: no rash Allergy: no hives Musculoskeletal: no extremity pain or swelling Neurological: no numbness/tingling, no weakness MEDICATIONS: I agree with the patient medications as charted by the RN. ALLERGIES: I agree with the allergies as charted by the RN. PAST MEDICAL HISTORY/PAST SURGICAL HISTORY: Reviewed and agree as charted by RN. SOCIAL HISTORY: Reviewed and agree as charted by RN. FAMILY HISTORY: No significant familial comorbid conditions directly related to patient complaint EXAM: Reviewed vital signs as charted by RN. CONSTITUTIONAL: Alert and oriented and responds appropriately to questions. Well-appearing; well-nourished HEAD: Normocephalic; atraumatic EYES: PERRL; Conjunctivae clear, sclerae non-icteric ENT: normal nose; positive clear rhinorrhea; moist mucous membranes; pharynx without lesions noted, no uvula edema or deviation, no tonsillar hypertrophy, phonation normal NECK: Supple without meningismus; non-tender; no cervical lymphadenopathy, no masses CARD: RRR; no murmurs, no clicks, no rubs, no gallops; symmetric distal pulses RESP: Normal chest excursion without splinting or tachypnea; breath sounds clear and equal bilaterally; no wheezes, no rhonchi, no rales, pulse oximetry 100% on room air not hypoxic ABD/GI: Normal bowel sounds; non-distended; soft, non-tender, no rebound, no guarding; no palpable organomegaly or masses. BACK: The back appears normal and is non-tender to palpation, there is no CVA tenderness EXT: Normal ROM in all joints; non-tender to palpation; no cyanosis, no effusions, no edema SKIN: Normal color for age and race; warm; dry; good turgor; no acute lesions noted NEURO: Moves all extremities equally; Motor and sensory function intact PSYCH: The patient's mood and manner are appropriate. Grooming and personal hygiene are appropriate. MDM: 44-year-old female presenting with sore throat cough nasal congestion over the last 5 days. Has taken no medications for her symptoms. More likely this is postnasal drip causing her sore throat and cough, states her children are always in and out of the house with friends, will obtain COVID test strep test chest x-ray TRAVEL OUTSIDE OF THE [place] IN LAST 30 DAYS: No - Related Data Allergies/Adverse Reactions: No Known Allergies Allergy (Verified 08/04/19 06:47) Past Medical History - Social History Smoking Status: Unknown if Ever Smoked Family History: Reviewed & Not Pertinent - Past Medical History Cardiac Medical History: Denies: Hx Atrial Fibrillation, Hx Congestive Heart Failure, Hx Coronary Artery Disease, Hx Heart Attack, Hx Hypertension Pulmonary Medical History: Reports: Hx Asthma - SEASONAL Denies: Hx Bronchitis, Hx COPD, Hx Pneumonia, Hx Sleep Apnea Neurological Medical History: Reports: Hx Migraine. Denies: Hx Cerebrovascular Accident, Hx Seizures Endocrine Medical History: Reports: Hx Hypothyroidism. Denies: Hx Diabetes Mellitus Type 1 Renal/ Medical History: Reports: Hx End Stage Renal Disease - stage 2. Denies: Hx Peritoneal Dialysis GI Medical History: Denies: Hx Cirrhosis, Hx Gastroesophageal Reflux Disease, Hx Hepatitis Musculoskeletal Medical History: Reports Hx Arthritis - fibromyalgia, RHEUMATOID ARTHRITIS, Reports Hx Fibromyalgia Psychiatric Medical History: Reports: Hx Anxiety, Hx Depression Infectious Medical History: Denies: Hx Hepatitis, Hx HIV Past Surgical History: Reports: Hx Orthopedic Surgery - left knee, L shoulder, Hx Tonsillectomy - Immunizations Hx Diphtheria, Pertussis, Tetanus Vaccination: Yes Physical Exam - Vital signs Vitals: Temp Pulse Resp BP Pulse Ox 98.1 F 79 20 118/75 100 01/24/20 16:09 01/24/20 16:09 01/24/20 16:09 01/24/20 16:09 01/24/20 16:09 Course - Re-evaluation Re-evalutation: 01/24/20 17:00 Rapid strep negative. Chest x-ray negative for acute findings. Patient will be considered a person under investigation at this time although I suspect this is more likely to be rhinitis and allergy related. Will place patient on Claritin, Flonase, she will restrict at home until her COVID test results - Vital Signs Vital signs: Temp Pulse Resp BP Pulse Ox 98.1 F 79 20 118/75 100 01/24/20 16:09 01/24/20 16:09 01/24/20 16:09 01/24/20 16:09 01/24/20 16:09 Discharge - Discharge Clinical Impression: Person under investigation for COVID-19, Cough Rhinitis Qualifiers: Rhinitis type: unspecified Qualified Code(s): J31.0 - Chronic rhinitis Condition: Stable Disposition: HOME, SELF-CARE Additional Instructions: Your strep test and chest x-ray did not show acute findings today. Take the Flonase and Claritin as prescribed. This will help dry your sinuses and congestion up. You are considered a person under investigation at this time, self quarantine at home until you have a negative COVID test these usually have a 48-hour turnaround and you will hear from the hospital about your result Prescriptions: Loratadine [Claritin 10 mg Tablet] 10 mg PO DAILY #30 tablet Fluticasone Propionate [Flonase Nasal Ransom 50 Mcg/Ransom 16 gm] 1 spray NASL Q12 #1 inhaler Forms: Return to Work Referrals: MAIKOL WALKER MD [Primary Care Provider] - Follow up as needed
--- NOTE | 2020-01-24 16:41 | RADIOLOGY REPORT (SQ) ---
EXAM DESCRIPTION: CHEST SINGLE VIEW IMAGES COMPLETED DATE/TIME: 01/24/2020 4:23 pm REASON FOR STUDY: cough COMPARISON: None. NUMBER OF VIEWS: One view. TECHNIQUE: Single frontal radiographic view of the chest acquired. LIMITATIONS: None. FINDINGS: LUNGS AND PLEURA: Low lung volumes. No opacities, masses or pneumothorax. No pleural eff usion. MEDIASTINUM AND HILAR STRUCTURES: No masses. No contour abnormality. HEART AND VASCULAR STRUCTURES: Normal size. No evidence for failure. BONES: No acute findings. HARDWARE: None in the chest. OTHER: No other significant finding. IMPRESSION: LOW LUNG VOLUMES. NO SIGNIFICANT RADIOGRAPHIC FINDING IN THE CHEST. TECHNICAL DOCUMENTATION: JOB ID: [id number] [place]-72 2010 [employer]- All Rights Reserved Reading location - IP/workstation name: [facility]
== END 2020-01-24 17:25 | disposition home or self-care (01) ==
LOC: ER 14:06
DX: J31.1 Chronic nasopharyngitis (principal); R05 Cough; R09.81 Nasal congestion; Z20.828 Contact with and (suspected) exposure to other viral communicable diseases; J45.909 Unspecified asthma, uncomplicated
CPT/HCPCS: 99283; 87070; 87880; 71045; U0003; C9803; 87635